=== PATIENT | female | born 1945 | race Caucasian/White ===

== ENCOUNTER → 2018-07-10 13:58 | Outpatient (CLI) | payer MEDICARE, OTHER, SELFPAY ==
--- NOTE | 2018-07-10 | DI.MRI.S_ITS ---
PROCEDURE: MR WRIST LT W CON INDICATIONS: Left wrist pain and decreased range of motion TECHNIQUE: After the administration of 3-4 mL of dilute intra-articular Gadolinium contrast into the radiocarpal compartment, coronal T1 spin echo with fat saturation and T2 fast spin echo with fat saturation, axial T1 spin echo and T2 fast spin echo with fat saturation, sagittal T1 spin echo with and without fat saturation through the wrist. COMPARISON: [facility], , [place] WRIST INJECTION MR/CT LT, 07/10/2018, 14:21. [facility] [place], CR, XR WRIST 3+ VIEWS LEFT, 06/29/2018, 13:38. FINDINGS: Image quality: Diagnostic. Bones and joints: No acute fracture, dislocation, or suspicious osseous lesion is identified involving the osseous structures of the left wrist. Postsurgical changes are present related to resection of the trapezium. Postoperative changes through the base of the 1st metacarpal are present. An orthopedic screw is evident at this location, likely related to tendon or ligament reconstruction/reattachment. Moderate degenerative changes are noted involving the 2nd and 4th carpometacarpal joints. There is mild widening of the scapholunate joint. Adequate distention of the radiocarpal joint with the injected contrast is evident. Contrast is seen extending into the midcarpal row and the distal radioulnar joint. No definite loose intra-articular joint bodies are appreciated. Carpal ligaments: There is a small perforating tear identified involving the scapholunate ligament. The lunotriquetral ligament appears intact. The volar and dorsal extrinsic ligaments of the wrist appear to be grossly intact, but are not well evaluated. Triangular fibrocartilage complex: There is a small perforating tear identified involving the central margin of the triangular fibrocartilage disc with the tear measuring approximately 2 mm in diameter. The meniscal homologue appears to be within normal limits. The extensor carpi ulnaris tendon is intact, but demonstrates slight increased signal near the level of the ulnar styloid process. Tendons and soft tissues: The flexor tendons through the region of the carpal tunnel are intact and within normal limits. However, convex bulge of the carpal tunnel is identified with slight prominence of the median nerve through the region of the carpal tunnel. The ulnar nerve is not well seen streaky on canal, but appears to be within normal limits. There is increased signal and thickening involving the contents of the 1st extensor compartment. Postoperative changes of these tendons probably is present. Otherwise, the remainder of the extensor tendons (other than the extensor carpi ulnaris tendon as described above) are unremarkable and within normal limits. IMPRESSION: 1. Postoperative changes at the base of the thumb as described. 2. Moderate tendinopathy involving the contents of the 1st extensor compartment may represent de Quervain's tenosynovitis or be postoperative in nature. No full-thickness tear. 3. Small perforation of the scapholunate ligament. 4. Small central tear involving the triangular fibrocartilage disc. 5. Mild extensor carpi ulnaris tendinopathy. 6. Moderate degenerative changes involving the 2nd and 4th carpometacarpal joints. 6. Prominence of the contents of the carpal tunnel. Please correlate clinically to exclude carpal tunnel syndrome. Dictated by: John Romero M.D. on 07/10/2018 at 16:33 Approved by: John Romero M.D. on 07/10/2018 at 16:42
--- NOTE | 2018-07-10 | DI.RAD.S_ITS ---
PROCEDURE: [place] WRIST INJECTION MR/CT LT INDICATIONS: osteoarthritis of first carpometacarpal joint TECHNIQUE: After informed consent had been obtained, the wrist was examined fluoroscopically, and a site chosen for injection of the radiocarpal compartment from a dorsal approach. Skin was prepped and draped in a sterile fashion and 1% lidocaine infiltrated from the skin down to the articular surface. A hypodermic needle was then introduced into the articular space and a modest amount of contrast medium was instilled confirming intra-articular needle tip placement. This was followed by approximately 4 mL of a dilute gadolinium solution. Needle was removed and dressing was applied. The patient experienced no complications throughout the procedure and left the fluoroscopic suite in no apparent distress. FINDINGS: A single fluoroscopic spot image demonstrates intra-articular location to injected iodinated contrast. IMPRESSION: Successful fluoroscopic-guided administration of dilute Gadolinium solution for wrist MR arthrogram. Dictated by: Maxx Jaimes M.D. on 07/10/2018 at 14:55 Approved by: Maxx Jaimes M.D. on 07/10/2018 at 14:56
== END ==
PROVIDERS: PCP Family Medicine; Visit Provider Orthopaedic Surgery
DX: M25.532 Pain in left wrist (principal); M19.042 Primary osteoarthritis, left hand; S63.592A Other specified sprain of left wrist, initial encounter
CPT/HCPCS: 20605; 73222; 76000

== ENCOUNTER → 2019-03-22 11:27 | Outpatient (CLI) | payer MEDICARE, OTHER, SELFPAY ==
--- NOTE | 2019-03-22 | DI.MRI.S_ITS ---
PROCEDURE: MR LUMBAR SPINE WO CON INDICATIONS: LUMBAR RADICULOPATHY TECHNIQUE: Noncontrast sagittal T1 spin echo and T2 fast echo, sagittal STIR, axial T1 and T2 fast spin echo through the lumbar spine. In cases with scoliosis, additional coronal T2 fast spin echo may be performed. COMPARISON: None. FINDINGS: Image quality: Excellent. Alignment and Curvature: There is normal bony alignment. Bone Marrow: Marrow is of normal overall signal. No acute vertebral body compression fractures. Spinal Cord: Conus medullaris terminates at the L1 level. Visualized cord demonstrates normal signal and size. Paraspinous Soft Tissues: No paravertebral masses. L1-L2: Loss of the signal. Minimal, diffuse disc bulge. No central stenosis. No neural foraminal narrowing. No neural compression. L2-L3: Loss of the signal and slight loss of disc height. Mild, diffuse disc bulge. No central stenosis. No neural foraminal narrowing. No neural compression. L3-L4: Loss of disc signal and slight loss of disc height. Mild, diffuse disc bulge. Mild bilateral facet hypertrophy. Mild narrowing of the central canal. No neural foraminal narrowing. No neural compression. L4-L5: Loss of disc signal. Mild, diffuse disc bulge and mild bilateral facet hypertrophy. Mild ligamentum flavum hypertrophy. Mild narrowing of the central canal. Mild bilateral neural foraminal narrowing. No neural compression. L5-S1: Loss of disc signal. Mild, diffuse disc bulge. Mild bilateral facet hypertrophy. No central stenosis. No neural foraminal narrowing. No neural compression. IMPRESSION: 1. Multilevel degenerative disc disease. 2. Multilevel facet arthropathy. 3. Mild L3-L4 and L4-L5 central canal narrowing. 4. Mild bilateral L4-L5 neural foraminal narrowing. 5. No neural compression. Dictated by: Tammie Mason MD, PhD on 03/22/2019 at 16:33 Approved by: Tammie Mason MD, PhD on 03/22/2019 at 16:46
== END ==
PROVIDERS: PCP Internal Medicine; Visit Provider Psychiatry & Neurology Neurology
DX: M51.16 Intervertebral disc disorders with radiculopathy, lumbar region (principal); M51.17 Intervertebral disc disorders with radiculopathy, lumbosacral region; M48.061 Spinal stenosis, lumbar region without neurogenic claudication; M47.27 Other spondylosis with radiculopathy, lumbosacral region; M47.26 Other spondylosis with radiculopathy, lumbar region
CPT/HCPCS: 72148

== ENCOUNTER → 2019-08-20 13:58 | Outpatient (CLI) | payer MEDICARE, OTHER, SELFPAY ==
--- NOTE | 2019-08-20 14:02 | DI.RAD.S_ITS ---
PROCEDURE: XR LUMBAR SPINE MIN 4V INDICATIONS: Hip flexor weakness TECHNIQUE: 4 views of the lumbar spine acquired. COMPARISON: [facility], MR, MR LUMBAR SPINE WO CON, 03/22/2019, 11:38. FINDINGS: Bones: On nonrib-bearing vertebrae are present. There is minimal levoconvex curvature within the lumbar spine with apex at L2-3. Multilevel disc space narrowing is present most severe at L5-S1. Minimal mild foraminal narrowing is noted at L4-5 as well as moderate at L1-L2. No vertebral body compression fractures. No suspicious bony lesions. Soft tissues: Overlying bowel gas pattern is normal. No suspicious soft tissue calcifications. Flexion/extension: There is normal range of motion, with preserved normal alignment. IMPRESSION: Stable appearance of degenerative changes as above. Dictated by: Aurelia Polo M.D. on 08/20/2019 at 16:42 Approved by: Aurelia Polo M.D. on 08/20/2019 at 16:45
== END ==
PROVIDERS: PCP Internal Medicine; Referring Provider Physical Medicine & Rehabilitation; Visit Provider Physical Medicine & Rehabilitation
DX: M54.5 Low back pain (principal); M48.07 Spinal stenosis, lumbosacral region; R29.898 Other symptoms and signs involving the musculoskeletal system; M47.816 Spondylosis without myelopathy or radiculopathy, lumbar region; F41.0 Panic disorder [episodic paroxysmal anxiety]; M47.817 Spondylosis without myelopathy or radiculopathy, lumbosacral region; Z98.84 Bariatric surgery status
CPT/HCPCS: 72110; 99214

== ENCOUNTER → 2019-10-30 13:49 | Outpatient (CLI) | payer MEDICARE, OTHER, SELFPAY ==
--- NOTE | 2019-10-30 | DI.MRI.S_ITS ---
PROCEDURE: MR KNEE LT WO CON INDICATIONS: LEFT KNEE PAIN TECHNIQUE: Noncontrast sagittal PD fast spin echo and T2 fast spin echo with fat saturation, sagittal 3-D FLASH with fat saturation; coronal T1 spin echo and PD fast spin echo with fat saturation, and axial PD fast spin echo with fat saturation through the knee. COMPARISON: None. FINDINGS: Image quality: Excellent. Menisci: Medial meniscus intact. Lateral meniscus intact. Cruciate ligaments: Anterior cruciate ligament appears intact. Posterior cruciate ligament appears intact. Medial structures: The medial collateral ligament appears intact. Semimembranosus tendon appears intact. Visualized portions of the pes anserinus tendons appear normal. No abnormal bursal fluid. Lateral structures: The lateral collateral ligament intact. Biceps femoris tendon appears intact. Popliteus tendon grossly unremarkable. Iliotibial band appears intact. Anterior structures: Mild distal quadriceps tendinopathy. Medial and lateral patellofemoral ligaments intact. There is mild patellar tendinopathy. Prepatellar and superficial infrapatellar subcutaneous edema/fluid. Bones and cartilage: No focal marrow contusion or discrete low signal fracture line. Within the medial compartment, mild surface fraying of the femoral tibial cartilage without focal defect. Within the lateral compartment, partial-thickness central cartilage defect involving the femoral condyle. There is intrasubstance signal change of the central tibial cartilage. Within the patellofemoral compartment, there is full-thickness cartilage loss overlying the median patellar ridge and medial patellar facet. There is underlying mild subchondral marrow edema/cystic change. No definite focal cartilage defect involving the femoral trochlea Joint space: No joint effusion. No definite Hess's cyst however there is trace fluid between the semimembranosus and medial gastrocnemius tendons. No specific evidence of intra-articular loose body. IMPRESSION: Distal quadriceps tendinopathy Patellar tendinopathy with adjacent fluid/edema Joint degeneration as above, most pronounced in the patellofemoral compartment. Dictated by: Rafael Echavarria M.D. on 10/30/2019 at 16:31 Approved by: Rafael Echavarria M.D. on 10/30/2019 at 16:37
== END ==
PROVIDERS: PCP Internal Medicine; Referring Provider Internal Medicine; Visit Provider Internal Medicine
DX: M25.562 Pain in left knee (principal); M67.962 Unspecified disorder of synovium and tendon, left lower leg
CPT/HCPCS: 73721

== ENCOUNTER → 2022-08-26 14:47 | Outpatient (CLI) | payer MEDICARE, OTHER, SELFPAY ==
--- NOTE | 2022-08-26 14:49 | DI.RAD.S_ITS ---
PROCEDURE: XR LUMBAR SPINE MIN 4V INDICATIONS: LBP scoliosis TECHNIQUE: 5 views of the lumbar spine were acquired, including bilateral oblique views. COMPARISON: [facility], , XR LUMBAR SPINE MIN 4V, 08/20/2019, 14:25. FINDINGS: Bones: 5 nonrib-bearing vertebrae are present. Convex left scoliosis, centered at L2, Salvador angle of 13 degrees. Grade 1 anterolisthesis of L5 on S1 secondary to facet arthrosis. Moderate disc height loss at all levels. Diffuse facet arthrosis. Soft tissues: Overlying bowel gas pattern is normal. No suspicious soft tissue calcifications. Oblique images: No pars defects. IMPRESSION: Convex left scoliosis of the lumbar spine. Associated diffuse facet arthrosis. Moderate, multilevel degenerative disc disease. Dictated by: Talib Spencer M.D. on 08/26/2022 at 16:25 Approved by: Talib Spencer M.D. on 08/26/2022 at 16:26
--- NOTE | 2022-08-26 14:49 | DI.RAD.S_ITS ---
PROCEDURE: XR THORACIC SPINE 3V INDICATIONS: LBP scoliosis TECHNIQUE: 3 views of the thoracic spine were acquired. COMPARISON: None. FINDINGS: Bones: No fractures or dislocations. No suspicious bony lesions. 12 pairs of ribs are noted, and appear intact where visualized. Convex left scoliosis, centered at L2. Soft tissues: No paravertebral stripe thickening. IMPRESSION: No acute, displaced fracture or traumatic subluxation. No significant degenerative change. Dictated by: Talib pSencer M.D. on 08/26/2022 at 16:24 Approved by: Talib Spencer M.D. on 08/26/2022 at 16:25
== END ==
PROVIDERS: PCP Family Medicine; Referring Provider Physical Medicine & Rehabilitation; Visit Provider Physical Medicine & Rehabilitation
DX: M47.816 Spondylosis without myelopathy or radiculopathy, lumbar region (principal); M41.26 Other idiopathic scoliosis, lumbar region; M51.26 Other intervertebral disc displacement, lumbar region
CPT/HCPCS: 72072; 72110

== ENCOUNTER 2022-11-25 10:17 | Outpatient (CLI) | payer MEDICARE, OTHER, SELFPAY ==
[2022-11-25] VITALS (8 sets, daily range): BP systolic 113–143; BP diastolic 59–89; PULSE 77–92; RESP 16–20; TEMP 36.6; O2SAT 97–100
--- NOTE | 2022-11-25 10:19 | DI.RAD.S_ITS ---
PROCEDURE: PAIN L/SI FACET INJ/BLK 1STL INDICATIONS: SPONDYLOSIS COMPARISON: None. FINDINGS: Fluoroscopic spot filming was performed to verify placement of spinal needles at the left L4, L5 and S1 pedicles level(s), as labeled on the films. Appropriate location(s) of the needle tip(s) was confirmed by injection of iodinated contrast. IMPRESSION: Access needles at the left L4, L5 and S1 pedicles for left L4, L5 and S1 medial branch block. Dictated by: Tammie Mason MD, PhD on 11/25/2022 at 13:02 Approved by: Tammie Mason MD, PhD on 11/25/2022 at 13:03
[2022-11-25] MEDS: MIDAZOLAM 2 MG/2 ML VIAL IV (11:08)
[2022-11-25] MEDS: IOPAMIDOL 15 ML VIAL 3 ML INJ (11:15)
[2022-11-25] MEDS: BUPIVACAINE 0.5% (PF) 10 ML VIAL 5 ML INJ (11:16)
[2022-11-25] MEDS: LIDOCAINE 1% 20 ML 5 ML INJ (11:17)
--- NOTE | 2022-11-25 11:21 | PM.PROC.IR.1 ---
Date/Time/Diagnoses Date of procedure: 11/25/22 Time of procedure: 11:21 Pre-procedure diagnosis: 1. FACET ARTHROPATHY Post-procedure diagnosis: same Procedure Notes Procedure: 1. Left L4, L5 and S1 MB BLOCKS LA Indications: Tess is referred by Dr. Narayanan for treatment of Left Axial LBP. Physician: Elian Lewis Total Fluoroscopy time (seconds): 6 Total sedation minutes: 8 Complications: none Procedure in detail & Post-procedure care: DESCRIPTION OF PROCEDURE Fluoroscopically guided, contrast-controlled left L4, L5 and S1 medial branch blocks with 0.5cc of 0.5% Marcaine. Following review of allergy and review of potential side effects and complications, including, but not necessarily limited to, infection, allergic reaction, local tissue breakdown, nerve injury, paralysis, stroke and possible , the patient indicated that the patient understood and agreed to proceed. An informed consent document was signed by the patient, witnessed by a nurse, and placed in the patient's chart. After review of previous anaesthesic history and IV conscious sedation the patient was deemed safe to proceed with today?s procedure with IV conscious sedation as ASA class II designation. Safety time-out was performed to confirm patient ID, procedure to be performed and site of procedure. IV sedation was accomplished with a combination of 2mg of Versed was administered by the RN after DO order, titrated to patient comfort during the course of the procedure while the patient remained responsive to all verbal commands. In the prone position, following sterile prep and drape of the lumbar region, the left L4, L5 and S1 anatomical location of the medial branch of the dorsal ramus was identified fluoroscopically. Subsequently an anesthetic skin wheal using 1% lidocaine solution was initiated at each of the anatomical spots. Subsequently then a 22-gauge 3.5-inch spinal needle was atraumatically introduced and advanced under fluoroscopic guidance at each of the corresponding sites at the left L4, L5 and S1 MB. After negative aspiration, 0.2cc of Isovue 200 was injected, confirming placement without vascular or intrathecal uptake. Subsequently then 0.5cc of 0.5% Marcaine solution was injected at each of the corresponding sites at the left L4, L5 and S1 medial branch locations. The patient tolerated the procedure well without signs or symptoms of complications. The patient tolerated the procedure well without signs or symptoms of complications prior to transfer to the recovery area continued monitoring without incident. Post-procedure, the patient was monitored initiating provocative activities to measure the amount of relief from block of the facetogenic pain. The patient reported a VAS of 6 prior to the procedure and a post-procedure VAS of 1. It has been a pleasure to assist in the diagnostic and therapeutic care of your patient. POST OP INSTRUCTIONS The patient was provided with a Pain Log to complete over the next several hours and subsequent days prior to the patient's follow up with the ordering physician. If the patient has statement clerks supervisor relief to the solution applied, then they may be a candidate for medial branch rhizotomy. The patient is aware, was provided, once again, with a Pain Log and will follow up with the referring physician for review and clinical correlation.
== END 2022-11-25 11:38 | disposition home or self-care (01) ==
LOC: RAD 10:18
PROVIDERS: PCP Family Medicine; Referring Provider Physical Medicine & Rehabilitation; Visit Provider Physical Medicine & Rehabilitation
DX: M47.816 Spondylosis without myelopathy or radiculopathy, lumbar region (principal); M47.817 Spondylosis without myelopathy or radiculopathy, lumbosacral region
CPT/HCPCS: 64493; 64494; 99152; J2250

== ENCOUNTER 2023-03-03 09:28 | Outpatient (CLI) | payer MEDICARE, OTHER, SELFPAY ==
[2023-03-03] VITALS (8 sets, daily range): BP systolic 107–124; BP diastolic 59–76; PULSE 82–95; RESP 13–20; O2SAT 96–100
--- NOTE | 2023-03-03 10:15 | DI.RAD.S_ITS ---
PROCEDURE: PAIN L/SI FACET INJ/BLK 1STL INDICATIONS: FACET ARTHROPATHY COMPARISON: [facility], , PAIN L/SI FACET INJ/BLK 1STL, 11/25/2022, 11:11. FINDINGS: Fluoroscopic spot filming was performed to verify placement of spinal needles at the left L4, L5, and S1 level(s), as labeled on the films. Appropriate location(s) of the needle tip(s) was confirmed by injection of iodinated contrast. IMPRESSION: Left L4, L5, and S1 medial branch block. Dictated by: Becka Osuna M.D. on 03/03/2023 at 17:10 Approved by: Becka Osuna M.D. on 03/03/2023 at 17:11
[2023-03-03] MEDS: MIDAZOLAM 2 MG/2 ML VIAL IV (10:50)
[2023-03-03] MEDS: iopamidoL 15 ML VIAL 3 ML INJ (10:53)
[2023-03-03] MEDS: LIDOCAINE 2% INJ SDV 5ML 5 ML INJ (10:54)
--- NOTE | 2023-03-03 11:05 | P.PCN_ITS ---
Date/Time/Diagnoses Date of procedure: 03/03/23 Time of procedure: 11:05 Pre-procedure diagnosis: FACET ARTHROPATHY Post-procedure diagnosis: same Procedure Notes Procedure: 1. Left L4, L5 and S1 MB BLOCKS SA Indications: Tess is referred by Dr. Narayanan for treatment of Left Axial LBP. Physician: Elian Lewis Total Fluoroscopy time (seconds): 8 Total sedation minutes: 10 Complications: none Procedure in detail & Post-procedure care: DESCRIPTION OF PROCEDURE Fluoroscopically guided, contrast-controlled left L4, L5 and S1 medial branch blocks with 0.5cc of 2% Lidocaine. Following review of allergy and review of potential side effects and complications, including, but not necessarily limited to, infection, allergic reaction, local tissue breakdown, nerve injury, paralysis, stroke and possible , the patient indicated that the patient understood and agreed to proceed. An informed consent document was signed by the patient, witnessed by a nurse, and placed in the patient's chart. After review of previous anaesthesic history and IV conscious sedation the patient was deemed safe to proceed with today?s procedure with IV conscious sedation as ASA class II designation. Safety time-out was performed to confirm patient ID, procedure to be performed and site of procedure. IV sedation was accomplished with a combination of 2mg of Versed was administered by the RN after DO order, titrated to patient comfort during the course of the procedure while the patient remained responsive to all verbal commands. In the prone position, following sterile prep and drape of the lumbar region, the left L4, L5 and S1 anatomical location of the medial branch of the dorsal ramus was identified fluoroscopically. Subsequently an anesthetic skin wheal using 1% lidocaine solution was initiated at each of the anatomical spots. Subsequently then a 22-gauge 3.5-inch spinal needle was atraumatically introduced and advanced under fluoroscopic guidance at each of the corresponding sites at the left L4, L5 and S1 MB. After negative aspiration, 0.2cc of Isovue 200 was injected, confirming placement without vascular or intrathecal uptake. Subsequently then 0.5cc of 2% Lidocaine solution was injected at each of the corresponding sites at the left L4, L5 and S1 medial branch locations. The patient tolerated the procedure well without signs or symptoms of complications. The patient tolerated the procedure well without signs or symptoms of complications prior to transfer to the recovery area continued monitoring without incident. Post-procedure, the patient was monitored initiating provocative activities to measure the amount of relief from block of the facetogenic pain. The patient reported a VAS of 7 prior to the procedure and a post-procedure VAS of 1. It has been a pleasure to assist in the diagnostic and therapeutic care of your patient. POST OP INSTRUCTIONS The patient was provided with a Pain Log to complete over the next several hours and subsequent days prior to the patient's follow up with the ordering physician. If the patient has telemarketing sales representative relief to the solution applied, then they may be a candidate for medial branch rhizotomy. The patient is aware, was provided, once again, with a Pain Log and will follow up with the referring physician for review and clinical correlation.
== END 2023-03-03 11:20 | disposition home or self-care (01) ==
LOC: RAD 09:30
PROVIDERS: PCP Family Medicine; Referring Provider Physical Medicine & Rehabilitation; Visit Provider Physical Medicine & Rehabilitation
DX: M47.816 Spondylosis without myelopathy or radiculopathy, lumbar region (principal); M47.817 Spondylosis without myelopathy or radiculopathy, lumbosacral region
CPT/HCPCS: 64493; 64494; 99152; J2250

== ENCOUNTER 2023-05-17 10:31 | Outpatient (CLI) | payer MEDICARE, OTHER, SELFPAY ==
[2023-05-17] VITALS (9 sets, daily range): BP systolic 110–124; BP diastolic 63–80; PULSE 71–86; RESP 13–20; TEMP 36.3; O2SAT 92–100
--- NOTE | 2023-05-17 11:15 | DI.RAD.S_ITS ---
PROCEDURE: PAIN L/S MED/LAT N RFA INDICATIONS: FACET ARTHOPATHY COMPARISON: None. FINDINGS: Fluoroscopic spot filming was performed to verify placement of spinal needles at the L4-S1 level(s), as labeled on the films. Appropriate location(s) of the needle tip(s) was confirmed by injection of iodinated contrast. IMPRESSION: Fluoroscopically guided left lumbosacral facet injection. Dictated by: Lubna Qiu M.D. on 05/17/2023 at 16:32 Approved by: Lubna Qiu M.D. on 05/17/2023 at 16:33
[2023-05-17] MEDS: MIDAZOLAM 2 MG/2 ML VIAL IV (12:09)
[2023-05-17] MEDS: BUPIVACAINE 0.5% (PF) 10 ML VIAL 5 ML INJ (12:13)
[2023-05-17] MEDS: LIDOCAINE 1% 20 ML 5 ML INJ (12:13)
--- NOTE | 2023-05-17 12:34 | P.PCN_ITS ---
Date/Time/Diagnoses Date of procedure: 05/17/23 Time of procedure: 12:34 Pre-procedure diagnosis: 1. FACET ARTHROPATHY Post-procedure diagnosis: same Procedure Notes Procedure: 1. Left L4, L5 and S1 MB BLOCKS LA Indications: Tess is referred by Dr. Narayanan for treatment of Left Axial LBP. Physician: Elian Lewis Total Fluoroscopy time (seconds): 12 Total sedation minutes: 21 Complications: none Procedure in detail & Post-procedure care: DESCRIPTION OF PROCEDURE Fluoroscopically guided, contrast-controlled left L4, L5 and S1 medial branch blocks with 0.5cc of 0.5% Marcaine. Following review of allergy and review of potential side effects and complications, including, but not necessarily limited to, infection, allergic reaction, local tissue breakdown, nerve injury, paralysis, stroke and possible , the patient indicated that the patient understood and agreed to proceed. An informed consent document was signed by the patient, witnessed by a nurse, and placed in the patient's chart. After review of previous anaesthesic history and IV conscious sedation the patient was deemed safe to proceed with today?s procedure with IV conscious sedation as ASA class II designation. Safety time-out was performed to confirm patient ID, procedure to be performed and site of procedure. IV sedation was accomplished with a combination of 2mg of Versed was administered by the RN after DO order, titrated to patient comfort during the course of the procedure while the patient remained responsive to all verbal commands. In the prone position, following sterile prep and drape of the lumbar region, the left L4, L5 and S1 anatomical location of the medial branch of the dorsal ramus was identified fluoroscopically. Subsequently an anesthetic skin wheal using 1% lidocaine solution was initiated at each of the anatomical spots. Subsequently then a 22-gauge 3.5-inch spinal needle was atraumatically introduced and advanced under fluoroscopic guidance at each of the corresponding sites at the left L4, L5 and S1 MB. After negative aspiration, 0.2cc of Isovue 200 was injected, confirming placement without vascular or intrathecal uptake. Subsequently then 0.5cc of 0.5% Marcaine solution was injected at each of the corresponding sites at the left L4, L5 and S1 medial branch locations. The patient tolerated the procedure well without signs or symptoms of complications. The patient tolerated the procedure well without signs or symptoms of complications prior to transfer to the recovery area continued monitoring without incident. Post-procedure, the patient was monitored initiating provocative activities to measure the amount of relief from block of the facetogenic pain. The patient reported a VAS of 7 prior to the procedure and a post-procedure VAS of 1. It has been a pleasure to assist in the diagnostic and therapeutic care of your patient. POST OP INSTRUCTIONS The patient was provided with a Pain Log to complete over the next several hours and subsequent days prior to the patient's follow up with the ordering physician. If the patient has water chaser relief to the solution applied, then they may be a candidate for medial branch rhizotomy. The patient is aware, was provided, once again, with a Pain Log and will follow up with the referring physician for review and clinical correlation.
== END 2023-05-17 12:56 | disposition home or self-care (01) ==
PROVIDERS: PCP Family Medicine; Referring Provider Physical Medicine & Rehabilitation; Visit Provider Physical Medicine & Rehabilitation
DX: M47.816 Spondylosis without myelopathy or radiculopathy, lumbar region (principal); M47.817 Spondylosis without myelopathy or radiculopathy, lumbosacral region
CPT/HCPCS: 64635; 64636; 99152; J2250

== ENCOUNTER 2023-06-29 12:49 | Emergency (ER) | payer MEDICARE, OTHER, SELFPAY ==
[2023-06-29] VITALS (10 sets, daily range): BP systolic 95–115; BP diastolic 60–66; PULSE 66–104; RESP 18–30; TEMP 36.9; O2SAT 96–99; BMI 23.3
--- NOTE | 2023-06-29 13:06 | DI.RAD.S_ITS ---
PROCEDURE: XR CHEST 1V INDICATIONS: chest pain TECHNIQUE: One view of the chest was acquired. COMPARISON: None. FINDINGS: Surgical changes and devices: None. Lungs and pleura: Lungs are clear. No pleural effusions or pneumothorax. Mediastinum: Mediastinal contours appear normal. Heart size is normal. Bones and chest wall: No suspicious bony lesions. Overlying soft tissues appear unremarkable. IMPRESSION: No acute cardiopulmonary abnormality is seen. Approved by: Beverly Saleh M.D.,Ph.D. on 06/29/2023 at 15:12
--- NOTE | 2023-06-29 13:33 | ED_ITS ---
HPI - Nausea/Vomiting/Diarrhea General Chief complaint: Nausea/Vomiting/Diarrhea Stated complaint: diarrhea T-6 Time Seen by Provider: 06/29/23 13:07 Source: patient Mode of arrival: Ambulatory History of Present Illness HPI Narrative: Patient is a 77-year-old female who is here for evaluation of 6 days of diarrhea. No blood in her stool. No abdominal tenderness but she states she does feel like her abdomen is somewhat distended. No nausea vomiting. No fevers. She did recently return from [place]. No recent antibiotics. She has had a gastric bypass in the past. She stated in triage that she is being evaluated for potential abnormal heart rhythm by her primary doctor. She currently is not having chest pain or shortness of breath. Does occasionally have palpitations. Related Data Home Medications Medication Instructions Recorded Confirmed rabeprazole 20 mg tablet,delayed 20 mg PO 10/04/22 04/11/23 release lorazepam 2 mg/mL oral concentrate 0.25 mg PO BID PRN 01/12/23 04/11/23 (Lorazepam Intensol) Previous Rx's Medication Instructions Recorded hydrocodone 5 mg-acetaminophen 300 1 tab PO BEDTIME PRN pain #14 tabs 01/12/23 mg tablet acetaminophen 300 mg-codeine 30 mg 1 tab PO BID PRN pain #60 tabs 04/11/23 tablet diazepam 10 mg tablet (Valium) 10 mg PO .COMPLEX PRN 1-2 prior to 04/11/23 MRI and for possible steroid flare #10 tabs hydroxyzine pamoate 25 mg capsule 25 mg PO BID PRN pain (scale score 05/16/23 (Vistaril) 4-6) #30 caps ondansetron 4 mg disintegrating 4 mg PO Q8H PRN nausea and 06/29/23 tablet vomiting #10 tabs Allergies Allergy/AdvReac Type Severity Reaction Status Date / Time tramadol AdvReac Severe itching Verified 04/11/23 14:46 milk AdvReac Intermediate stomach Verified 04/11/23 14:46 cramps Review of Systems Review of Systems ROS Unobtainable: All systems reviewed & are unremarkable except as noted in HPI and below Patient History Medical History Scoliosis Panic attacks Spondylosis, lumbosacral Facet arthropathy, lumbar History of hiatal hernia Surgical History History of gastric bypass H/O gastric bypass H/O wrist surgery Family History Father Lung disease Mother A-fib Heart disease Brother Kidney stone Grandmother Stomach cancer Grandfather Heart disease Social History Smoking Status: Never smoker Smoking Status: Never smoker Substance Use Type: does not use Exam Initial Vital Signs Initial Vital Signs: Vital Signs Temperature 98.4 F 06/29/23 12:55 Pulse Rate 93 H 06/29/23 12:55 Respiratory Rate 18 06/29/23 12:55 Blood Pressure 115/66 06/29/23 12:55 Pulse Oximetry 97 06/29/23 12:55 Oxygen Delivery Method Room Air 06/29/23 12:55 Const General: cooperative, comfortable and No ill appearing HENMT Head: normal to inspection and atraumatic Resp Effort & Inspection: normal respiratory effort Auscultation: clear to auscultation bilaterally Cardio Rate: regular rate Rhythm: regular rhythm GI Inspection: normal to inspection and distended (Mild distention) Palpation: soft, No firm, No guarding and No tender Neuro General: patient alert, patient awake and moves all extremities Extrem General: normal to inspection and capillary refill normal Course Orders Ordered: ED Orders 06/29/23 13:06 XR chest 1V Stat 06/29/23 13:30 Complete Blood Count AUTO DIFF Stat 06/29/23 13:32 XR abdomen 1V Stat GI Panel (Film Array) Stat 06/29/23 14:10 Comprehensive Metabolic Panel Stat Lipase Stat Vital Signs Vital signs: Vital Signs - 8 hr 06/29/23 12:55 06/29/23 13:22 06/29/23 13:30 Temperature 98.4 F Pulse Rate 93 H 87 104 H Respiratory Rate 18 21 Blood Pressure 115/66 Pulse Oximetry 97 97 97 Oxygen Delivery Method Room Air 06/29/23 14:00 06/29/23 14:30 06/29/23 15:01 Temperature Pulse Rate 79 73 68 Respiratory Rate 23 24 Blood Pressure Pulse Oximetry 97 97 96 Oxygen Delivery Method Room Air MDM - Nausea/Vomiting/Diarrhea Lab Data Attestation: I reviewed the patient's lab results. 06/29/23 13:30 04/17/24 14:10 Labs: Lab Results 06/29/23 06/29/23 Range/Units 13:30 14:10 WBC 8.9 (4.5-11.0) X10^3/uL RBC 4.24 (4.0-5.2) X10^6/uL Hgb 12.5 (12.0-16.0) g/dL Hct 37.5 (36-46) % MCV 88.5 (80-100) fL MCH 29.4 (26-34) PG MCHC 33.2 (30-36) % RDW 13.8 (11.6-14.8) % Plt Count 338 (150-400) X10^3/uL Neut % (Auto) 58.5 (50-75) % Lymph % (Auto) 23.2 L (25-40) % [place] % (Auto) 14.2 H (3-14) % Eos % (Auto) 3.6 (2-4) % Baso % (Auto) 0.5 (0-2) % Neut # (Auto) 5200 (3680-6253) /uL Lymph # (Auto) 2100 (4456-6014) /uL [place] # (Auto) 1300 H (0-900) /uL Eos # (Auto) 300 (0-450) /uL Baso # (Auto) 0 (0-100) /uL Sodium 137 (137-145) mmol/L Potassium 3.5 (3.4-5.1) mmol/L Chloride 110 H (98-107) mmol/L Carbon Dioxide 21 L (22-32) mmol/L BUN 13 (7-17) mg/dL Creatinine 0.77 (0.52-1.04) mg/dL Estimated GFR > 60 (>60) mL/min BUN/Creatinine Ratio 16.9 (6-22) Glucose 95 (80-110) mg/dL Calcium 9.1 (8.4-10.2) mg/dL Magnesium Cancelled Total Bilirubin 0.4 (0.2-1.3) mg/dL AST 19 (14-36) IU/L ALT 10 (<35) IU/L Alkaline Phosphatase 80 (38-126) U/L Total Creatine Kinase Cancelled Troponin I Cancelled Total Protein 6.3 (6.3-8.2) g/dL Albumin 3.5 (3.5-5.0) g/dL Globulin 2.8 (1.7-4.1) g/dL Albumin/Globulin Ratio 1.3 (1.0-2.8) Lipase 42 (23-300) U/L Imaging Data Chest x-ray: Radiologist's Impression: PROCEDURE: XR CHEST 1V INDICATIONS: chest pain TECHNIQUE: One view of the chest was acquired. COMPARISON: None. FINDINGS: Surgical changes and devices: None. Lungs and pleura: Lungs are clear. No pleural effusions or pneumothorax. Mediastinum: Mediastinal contours appear normal. Heart size is normal. Bones and chest wall: No suspicious bony lesions. Overlying soft tissues appear unremarkable. IMPRESSION: No acute cardiopulmonary abnormality is seen. Abdominal x-ray: Radiologist's Impression: PROCEDURE: XR ABDOMEN 1V INDICATIONS: Abdominal distention TECHNIQUE: One view of the abdomen acquired. COMPARISON: None. FINDINGS: Surgical changes and devices: Surgical clips overlie the right upper quadrant. Surgical sutures overlie the left upper quadrant. Bowel: Bowel gas pattern is normal. Soft tissues: No suspicious abdominal calcifications. Visualized solid organ contours appear normal in size. Bones: No suspicious bony lesions. IMPRESSION: Nonobstructive bowel gas pattern. MDM Narrative Medical decision making narrative: Patient does have a benign soft abdominal exam. X-ray shows no signs of obstruction. She has no abdominal tenderness. Not vomiting. Labs are unremarkable. She is tolerating oral intake. Is unable to provide us a stool sample here in the ER. Had a discussion with her regarding this. We will hold on any antibiotics for now. Recommend taking Imodium to try to help slow down the diarrhea. Also sent home with a prescription for nausea medicine. Discussed the importance of increasing her fluid intake. Discussed return precautions and follow-up instructions. She expressed understanding and agreement. Discharge Plan Departure Patient Disposition: Home Clinical Impression: Diarrhea Instructions: Diarrhea Activity Restrictions/Additional Instructions: Recommend that you consider taking Imodium/loperamide to try to help slow down the diarrhea. Be sure that you were increasing your fluid intake. Contact your primary doctor for a follow-up. Return to the emergency department for new or worsening symptoms. Prescriptions: New ondansetron 4 mg tablet,disintegrating 4 mg PO Q8H PRN (Reason: nausea and vomiting) Qty: 10 0RF No Action hydroxyzine pamoate [Vistaril] 25 mg capsule 25 mg PO BID PRN (Reason: pain (scale score 4-6)) Qty: 30 1RF rabeprazole 20 mg tablet,delayed release (DR/EC) 20 mg PO lorazepam [Lorazepam Intensol] 2 mg/mL concentrate 0.25 mg PO BID PRN hydrocodone-acetaminophen 5-300 mg tablet 1 tab PO BEDTIME PRN (Reason: pain) Qty: 14 0RF diazepam [Valium] 10 mg tablet 10 mg PO .COMPLEX MDD 3 tabs PRN (Reason: 1-2 prior to MRI and for possible steroid flare) Qty: 10 0RF Rx Instructions: 10 mg PO PRN; acetaminophen-codeine 300-30 mg tablet 1 tab PO BID PRN (Reason: pain) Qty: 60 1RF Referrals: Hussain Narayanan DO [Primary Care Provider] - Stand Alone Forms: Patient Portal/API
[2023-06-29 13:48] LABS: Add Manual Diff / Slide Review NO; Basophils Absolute Auto 0 /uL (0-100); Basophils Percent Auto 0.5 % (0-2); Eosinophils Absolute Auto 300 /uL (0-450); Eosinophils Percent Auto 3.6 % (2-4); Hematocrit 37.5 % (36-46); Hemoglobin 12.5 g/dL (12.0-16.0); Lymphocytes Absolute Auto 2100 /uL (1100-4500); Lymphocytes Percent Auto 23.2 % (25-40); Mean Corpuscular HGB Conc 33.2 % (30-36); Mean Corpuscular Hemoglobin 29.4 PG (26-34); Mean Corpuscular Volume 88.5 fL (80-100); Monocytes Absolute Auto 1300 /uL (0-900); Monocytes Percent Auto 14.2 % (3-14); Neutrophils Absolute Auto 5200 /uL (1500-7000); Neutrophils Percent Auto 58.5 % (50-75); Platelet Count 338 X10^3/uL (150-400); Red Blood Cell Count 4.24 X10^6/uL (4.0-5.2); Red Cell Distribution Width 13.8 % (11.6-14.8); White Blood Cell Count 8.9 X10^3/uL (4.5-11.0)
[2023-06-29 14:28] LABS: Alanine Aminotransferase 10 IU/L (<35); Albumin 3.5 g/dL (3.5-5.0); Albumin Globulin Ratio 1.3 (1.0-2.8); Alkaline Phosphatase 80 U/L (38-126); Aspartate Aminotransferase 19 IU/L (14-36); BUN Creatinine Ratio 16.9 (6-22); Bilirubin Total 0.4 mg/dL (0.2-1.3); Blood Urea Nitrogen 13 mg/dL (7-17); Calcium 9.1 mg/dL (8.4-10.2); Carbon Dioxide 21 mmol/L (22-32); Chloride 110 mmol/L (98-107); Estimated Glomerular Filt Rate > 60 mL/min (>60); Globulin 2.8 g/dL (1.7-4.1); Glucose 95 mg/dL (80-110); HEMOLYSIS 15 (0-50); Lipase 42 U/L (23-300); Potassium 3.5 mmol/L (3.4-5.1); Sodium 137 mmol/L (137-145); Total Protein 6.3 g/dL (6.3-8.2)
== END 2023-06-29 16:14 | disposition home or self-care (01) ==
PROVIDERS: Emergency Provider Emergency Medicine; PCP Family Medicine
DX: R19.7 Diarrhea, unspecified (principal); R07.9 Chest pain, unspecified; R14.0 Abdominal distension (gaseous)
CPT/HCPCS: 36415; 71045; 74018; 80053; 83690; 85025; 99284

== ENCOUNTER → 2023-07-18 15:02 | Outpatient (CLI) | payer MEDICARE, OTHER, SELFPAY ==
--- NOTE | 2023-07-18 15:03 | DI.US.S_ITS ---
PROCEDURE: US ABDOMEN COMPLETE INDICATIONS: EPIGASTRIC ABDOMINAL PAIN TECHNIQUE: Real-time scanning was performed of the abdominal and retroperitoneal organs, with image documentation. COMPARISON: None. FINDINGS: Liver: Increased liver echogenicity with posterior attenuation, most consistent with moderate to severe steatosis. Gallbladder: Absent. Biliary ducts: No intrahepatic biliary dilation. Extrahepatic biliary tree not visualized due to overlying bowel gas. Pancreas: Not visualized due to overlying bowel gas. Spleen: Spleen is normal in size and homogeneous in echotexture. Kidneys: Kidneys are normal in size and echotexture. Right kidney measures 9.7 cm long; left kidney measures 8.6 cm long. No hydronephrosis or nephrolithiasis. No solid masses. Aorta: Visualized aorta is normal in caliber at less than 3 cm. Iliacs: Proximal common iliac arteries are normal in caliber at less than 2.5 cm. IVC: Not well seen due to overlying bowel gas. Miscellaneous: No free abdominal fluid. IMPRESSION: Increased liver echogenicity with posterior attenuation, most consistent with moderate to severe steatosis. No acute abnormality otherwise. Dictated by: Talib Spencer M.D. on 07/18/2023 at 16:43 Approved by: Talib Spencer M.D. on 07/18/2023 at 16:44
== END ==
PROVIDERS: PCP Family Medicine; Referring Provider Internal Medicine Gastroenterology; Visit Provider Internal Medicine Gastroenterology
DX: R10.13 Epigastric pain (principal)
CPT/HCPCS: 76700

== ENCOUNTER 2023-08-04 08:52 | Outpatient (CLI) | payer MEDICARE, OTHER, SELFPAY ==
[2023-08-04] VITALS (8 sets, daily range): BP systolic 100–118; BP diastolic 60–71; PULSE 65–86; RESP 14–18; TEMP 36.4; O2SAT 96–100
--- NOTE | 2023-08-04 09:45 | DI.RAD.S_ITS ---
PROCEDURE: PAIN SI JOINT INJECTION HARRIETT INDICATIONS: BILATERAL SI JOINT INJECTION COMPARISON: None. FINDINGS: Fluoroscopic spot filming was performed to verify placement of spinal needles at the sacroiliac joints level(s), as labeled on the films. Appropriate location(s) of the needle tip(s) was confirmed by injection of iodinated contrast. IMPRESSION: Sacroiliac joint injection for procedural guidance. Dictated by: Rd Scherer M.D. on 08/04/2023 at 13:43 Approved by: Rd Scherer M.D. on 08/04/2023 at 13:44
[2023-08-04] MEDS: MIDAZOLAM 2 MG/2 ML VIAL 1.25 MG IV (10:09)
[2023-08-04] MEDS: fentaNYL 100 MCG/2 ML INJ 25 MCG IV (10:10)
[2023-08-04] MEDS: iopamidoL 15 ML VIAL 3 ML INJ (10:13)
[2023-08-04] MEDS: BUPIVACAINE 0.5% (PF) 10 ML VIAL 5 ML INJ (10:13)
[2023-08-04] MEDS: BETAMETHASONE 30 MG/5 ML MDV 12 MG INJ (10:14)
--- NOTE | 2023-08-04 10:26 | PM.PROC.IR.1 ---
Date/Time/Diagnoses Date of procedure: 08/04/23 Time of procedure: 10:26 Pre-procedure diagnosis: Sacroiliac joint pain/DJD Post-procedure diagnosis: same Procedure Notes Procedure: Fluoroscopic guided contrast controlled bilateral sacroiliac joint injection Indications: Tess is referred by Dr. Narayanan for treatment of bilateral sacroiliac joint DJD Physician: Elian Lewis Total Fluoroscopy time (seconds): 17 Total sedation minutes: 12 Complications: none Procedure in detail & Post-procedure care: Description of procedure Fluoroscopic guided, contrast controlled bilateral sacroiliac joint injection Following review of allergies and review of potential side effects and complications, including, but not necessarily limited to, infection, allergic reaction, local tissue breakdown, temporary as well as permanent nerve injury, paralysis, stroke and possible , the patient indicated that they understood and agreed to proceed. An informed consent was signed by the patient, witnessed by a nurse, and placed in the patient's chart. Additionally, other treatment options including modalities, medications, and physical therapy were reviewed with the patient. After review of previous anaesthesic history and IV conscious sedation the patient was deemed safe to proceed with today?s procedure with IV conscious sedation as ASA class II designation. Safety time-out was performed to confirm patient ID, procedure to be performed and site of procedure. IV sedation was accomplished with a combination of 1mg Versed and 25mcg of Fentanyl were administered by the RN after DO order, titrated to patient comfort during the course of the procedure while the patient remained responsive to all verbal commands In the prone position following sterile prep and drape of the pelvic region, the hyper lucency on in the inferior aspect of the sacroiliac joint was identified fluoroscopically the skin was anesthetized be a 25 gauge 1.5 inch needle with approximately 2cc of 1% lidocaine solution. At this point, a 22 gauge 3 in spinal needle was atraumatically introduced and advanced under fluoroscopic guidance into the inferior aspect of the right sacroiliac joint. Following negative aspiration, approximately 0.3cc of Isovue-300 was injected confirming intra-articular placement without vascular uptake. Radiographic data, including multiple fluoroscopic views of the pelvis, reveals a spinal needle in the sacroiliac joint hyper lucent zone. Subsequent view show flow contrast tear superiorly and inferiorly within the joint capsule without vascular intrathecal uptake. At this point a total of 1cc of 0.5% Marcaine was combined with 1cc of 6mg of betamethasone was injected without incident. Attention was then refocused the left sacroiliac joint where the procedure was replicated. The procedure tolerated the procedure well without signs or symptoms of complications prior to transfer to the recovery area continued monitoring without incident. The patient was then transferred to the recovery area with a bur observed for an appropriate time after the injection. The patient reverted a vas score of 7 prior to the procedure and post-procedure vas of 1. Postop instructions The patient was provided with a pain like to continue to record the patient's response to the target specific procedure prior to the patient's follow-up visit with the referring physician. Additionally, specific post injection care instructions and a contact number to our office were provided if concerns arise regarding the possible complications associated with procedure are suspected.
== END 2023-08-04 10:45 | disposition home or self-care (01) ==
LOC: RAD 08:52
PROVIDERS: PCP Family Medicine; Referring Provider Physical Medicine & Rehabilitation; Visit Provider Physical Medicine & Rehabilitation
DX: M46.1 Sacroiliitis, not elsewhere classified (principal); M53.3 Sacrococcygeal disorders, not elsewhere classified
CPT/HCPCS: 27096; 77002; 99152; J0702; J2250; J3010

== ENCOUNTER → 2023-08-22 12:12 | Outpatient (CLI) | payer MEDICARE, OTHER, SELFPAY ==
--- NOTE | 2023-08-22 12:14 | DI.RAD.S_ITS ---
PROCEDURE: XR DEXA AXIAL SKELETON INDICATIONS: ASYMPTOMATIC MENOPAUSAL STATE COMPARISON: [facility], , DEXA AXIAL SKELETON, 06/17/2016, 15:37. FINDINGS: Lumbar Spine: Bone mineral density 0.791 g/cm2, T score -2.3. Left Hip: Bone mineral density 0.681 g/cm2, T score -2.1. Left Femoral Neck: Bone mineral density 0.581 g/cm2, T score -2.4. Right Hip: Bone mineral density 0.654 g/cm2, T score -2.4. Right Femoral Neck: Bone mineral density 0.547 g/cm2, T score -2.7. Fracture Risk Calculation (when applicable): 10-year fracture risk of a major osteoporotic fracture 19% and of a hip fracture 6.5%. (T score greater or equal to -1.0 to: NORMAL) (T score from -1.1 to -2.4: OSTEOPENIA) (T score less than or equal to -2.5: OSTEOPOROSIS) IMPRESSION: Osteoporosis. Follow-up guidelines as follows: Osteoporosis: Consider a repeat DEXA and Vertebral Fracture Assessment (VFA) exam in 2 years or sooner if medically necessary, to reassess this patient's status. Osteopenia: Consider a repeat DEXA in 2-3 years to reassess this patient's status, or if there is a new clinical indication. Normal: Consider a repeat DEXA in 5 years or sooner, or if there is a new clinical indication. All treatment decisions require clinical judgment and consideration of individual patient factors, including patient preferences, comorbidities, previous drug use, risk factors not captured in the FRAX model (e.g., frailty, falls, vitamin D deficiency, increased bone turnover, interval significant decline in bone density ) and possible under- or over-estimation of fracture risk by FRAX. In addition, the NOF Guide recommends that FDA-approved medical therapies be considered in postmenopausal women and men age >= 50 years with a: * Hip or vertebral (clinical or morphometric) fracture * T-score of <=-2.5 at the spine or hip * Ten-year fracture probability by FRAX of >= 3% for hip fracture or >=20% for major osteoporotic fracture. People with diagnosed cases of osteoporosis or at high risk for fracture should have regular bone mineral density tests. For patients eligible for Medicare, routine testing is allowed once every 2 years. The testing frequency can be increased to one year for patients who have rapidly progressing disease, those who are receiving or discontinuing medical therapy to restore bone mass, or have additional risk factors. Dictated by: Max Ruiz M.D. on 08/22/2023 at 17:33 Approved by: Max Ruiz M.D. on 08/22/2023 at 17:39
== END ==
LOC: RAD 12:12
PROVIDERS: PCP Family Medicine; Referring Provider Family Medicine; Visit Provider Family Medicine
DX: Z78.0 Asymptomatic menopausal state (principal); Z13.820 Encounter for screening for osteoporosis; M81.0 Age-related osteoporosis without current pathological fracture
CPT/HCPCS: 77080

== ENCOUNTER → 2023-09-07 06:56 | Outpatient (CLI) | payer MEDICARE, OTHER, SELFPAY ==
--- NOTE | 2023-09-07 07:01 | DI.CT.S_ITS ---
PROCEDURE: CT ABDOMEN PELVIS W CON INDICATIONS: PAIN OF UPPER ABDOMEN, EPIGASTRIC PAIN TECHNIQUE: After the administration of intravenous contrast, axial sections acquired from the lung bases to the pubic symphysis. Coronal and sagittal reformats were performed. For radiation dose reduction, the following was used: automated exposure control, adjustment of mA and/or kV according to patient size. COMPARISON: None. FINDINGS: Image quality: Diagnostic. Lower Chest: No significant findings. ABDOMEN: Liver: No solid mass. Subcentimeter hypoattenuating lesion in segment 2, too small to characterize by CT but probably a small cyst. Gallbladder: Absent. Biliary ducts: No biliary dilation. Pneumobilia. Pancreas: No ductal dilation. Fatty atrophy. Spleen: Size is within normal limits. Adrenal Glands: 1.7 centimeter left adrenal nodule with indeterminate attenuation (25 Hounsfield unit). Kidneys and Ureters: No hydronephrosis. No solid mass. No complex renal cystic lesion which requires follow up. 3-4 millimeter nonobstructing right-sided renal stone. Stomach and Bowel: Normal colonic caliber, without significant wall thickening. Gastric bypass. Intussusception of the small bowel anastomosis in the left mid quadrant (series 4, image 17). Colonic diverticulosis without evidence of diverticulitis. Peritoneum: No abnormal intraperitoneal fluid. No free air. Ventral Wall: No significant ventral hernia. Abdominal Nodes: No retroperitoneal or mesenteric adenopathy by size criteria. Vessels: Aorta and inferior vena cava are normal in size. PELVIS: Pelvic Organs: Unremarkable. Bladder: No bladder wall thickening, accounting for underdistention. Pelvic Nodes: No enlarged lymph nodes. Miscellaneous: No inguinal hernias are seen. Bones: No aggressive osseous abnormality. IMPRESSION: Gastric bypass. Intussusception of the small bowel anastomosis in the left mid quadrant. Consider CT enterography or MRI enterography to exclude a lead point mass. 1.7 centimeter left adrenal nodule with indeterminate attenuation. Recommend dedicated CT or MRI for characterization (adrenal mass protocol). 4 millimeter nonobstructing right-sided renal stone. Colonic diverticulosis without evidence of diverticulitis. Dictated by: Talib Spencer M.D. on 09/07/2023 at 12:03 Approved by: Talib Spencer M.D. on 09/07/2023 at 12:13
== END ==
LOC: CT 06:59
PROVIDERS: PCP Family Medicine; Referring Provider Internal Medicine Gastroenterology; Visit Provider Internal Medicine Gastroenterology
DX: K91.30 Postprocedural intestinal obstruction, unspecified as to partial versus complete (principal); N20.0 Calculus of kidney; K57.90 Diverticulosis of intestine, part unspecified, without perforation or abscess without bleeding; E27.9 Disorder of adrenal gland, unspecified; R10.10 Upper abdominal pain, unspecified; Z98.84 Bariatric surgery status
CPT/HCPCS: 74177; Q9967

== ENCOUNTER → 2023-09-28 10:27 | Outpatient (CLI) | payer MEDICARE, OTHER, SELFPAY ==
--- NOTE | 2023-09-28 10:30 | DI.CT.S_ITS ---
PROCEDURE: CT ABDOMEN ADRENAL PROTOCOL INDICATIONS: Lesion of Adrenal Gland TECHNIQUE: Noncontrast 3 mm thick sections acquired from the diaphragms to the iliac crests. After the administration of intravenous contrast, 3 mm thick venous-phase and 15-minute delayed images acquired from the diaphragms to the iliac crests. For radiation dose reduction, the following was used: automated exposure control, adjustment of mA and/or kV according to patient size. COMPARISON: [facility], CT, CT ABDOMEN PELVIS W CON, 09/07/2023, 8:23. FINDINGS: Image quality: Diagnostic Lower chest: Scarring/atelectasis particularly in the left lower lobe. Small hiatal hernia and gastric bypass changes. Liver: Unremarkable. Subcentimeter lesions are too small to characterize, usually cysts Gallbladder and biliary system: Absent, nondilated allowing for postsurgical state Pancreas: Moderate parenchymal atrophy. No ductal dilation Spleen: Nonenlarged. Anterior calcification again seen Adrenals: Lipid rich left adrenal nodule compatible with adenoma measuring 1.8 cm. Kidneys: Small nonobstructing right lower pole renal calculus. Possible parapelvic cysts. No complicated or solid lesion requiring follow-up identified. No discrete hydronephrosis Vessels and lymph nodes: The main portal vein is patent. No abdominal aortic aneurysm or pathologic lymph nodes by size criteria. Bowel and peritoneum: Gastric wall thickening is present. Bypass changes. No pathologic ascites. There is possible subtle peritoneal nodularity, for example in the anterior upper midline measuring 9 x 7 mm (3/50). Body wall: Unremarkable Bones: Degenerative changes, no acute or suspicious abnormality. IMPRESSION: Left adrenal lipid rich adenoma. Consider correlation with laboratory testing to determine functional status. Gastric wall thickening is present. Bypass changes. There is possible subtle peritoneal nodularity (for example 3/50, measuring 9 x 7 mm on a single axial slice). Consider GI follow-up and possible PET-CT depending on clinical context. Other findings as above. Dictated by: Rd Scherer M.D. on 09/28/2023 at 14:53 Approved by: Rd Scherer M.D. on 09/28/2023 at 15:06
[2023-09-28 10:53] LABS: Estimated Glomerular Filt Rate > 60 mL/min (>60)
== END ==
LOC: CT 10:29
PROVIDERS: Radiology Diagnostic Radiology; PCP Family Medicine; Referring Provider Internal Medicine Gastroenterology; Visit Provider Internal Medicine Gastroenterology
DX: E27.9 Disorder of adrenal gland, unspecified (principal); R10.13 Epigastric pain; K44.9 Diaphragmatic hernia without obstruction or gangrene; N20.0 Calculus of kidney
CPT/HCPCS: 36415; 74170; 82565; Q9967

== ENCOUNTER → 2023-10-05 09:05 | Outpatient (CLI) | payer MEDICARE, OTHER, SELFPAY ==
--- NOTE | 2023-10-05 09:07 | DI.MRI.S_ITS ---
PROCEDURE: MR ENTEROGRAPHY PROTOCOL INDICATIONS: Intussusception TECHNIQUE: After the ingestion of oral contrast, coronal and axial HASTE, coronal 2-D FLASH in-and [id number] sequences. After the administration of contrast, coronal and axial VIBE or 2-D FLASH with fat saturation sequences acquired through the abdomen and pelvis. Optional diffusion weighted imaging and ADC may be performed. COMPARISON: None. FINDINGS: Image quality: Excellent. Bowel and peritoneum: Prior Marilyn-en-Y gastric bypass. Resolved intussusception at the anastomosis. Colonic interposition between the liver and hemidiaphragm. Colonic diverticulosis without evidence of diverticulitis. Image quality: Diagnostic. Lung bases: Unremarkable. Liver: No solid mass. Gallbladder: Absent. Biliary ducts: No biliary dilation. No evidence of PSC. Pancreas: No ductal dilation. Spleen: Size is within normal limits. Adrenal Glands: Left adrenal nodule with signal dropout on the out of phase sequence, consistent with a benign adrenal adenoma. This measures 1.8 centimeter. Kidneys and Ureters: No hydronephrosis. No solid mass. No complex renal cystic lesion which requires follow up. Peritoneum: No abnormal intraperitoneal fluid. No free air. Ventral Wall: No hernia. Abdominal Nodes: No retroperitoneal or mesenteric adenopathy by size criteria. Vessels: Aorta and inferior vena cava are normal in size. Pelvis: No pelvic mass. Blood products within the endometrium. There is a round mass within the endometrial cavity measuring 1.4 centimeter (series 30, image 46). Bones: No aggressive osseous abnormality. IMPRESSION: Resolved intussusception. Colonic diverticulosis without evidence of diverticulitis. Benign left adrenal adenoma by signal imaging characteristics. [employer] recommend routine biochemical screening to exclude a functional adenoma. Colonic interposition between the liver and hemidiaphragm, which can be symptomatic. Blood products within the endometrium, and rounded mass within the endometrial cavity measuring 1.4 centimeter. Recommend evaluation with pelvic ultrasound. Dictated by: Talib Spencer M.D. on 10/06/2023 at 11:00 Approved by: Talib Spencer M.D. on 10/06/2023 at 11:27
== END ==
PROVIDERS: PCP Family Medicine; Referring Provider Internal Medicine Gastroenterology; Visit Provider Internal Medicine Gastroenterology
DX: K56.1 Intussusception (principal); D35.02 Benign neoplasm of left adrenal gland; K57.90 Diverticulosis of intestine, part unspecified, without perforation or abscess without bleeding; Z90.49 Acquired absence of other specified parts of digestive tract; Z98.84 Bariatric surgery status
CPT/HCPCS: 72197; 74183; A9579

== ENCOUNTER → 2023-11-29 09:00 | Outpatient (CLI) | payer MEDICARE, OTHER, SELFPAY ==
--- NOTE | 2023-11-29 09:03 | DI.US.S_ITS ---
PROCEDURE: US PELVIC COMPLETE INDICATIONS: ENDOMETRIAL MASS FOLLOW UP TECHNIQUE: Real-time scanning was performed of the pelvic organs, with image documentation. Additional endovaginal scanning was necessary due to incomplete visualization of the adnexal and endometrial structures by transabdominal scanning. COMPARISON: [facility], CT, CT ABDOMEN PELVIS W CON, 09/07/2023, 8:23. [facility], [place], PET NECK TO MID THIGH, 11/09/2023, 11:58. FINDINGS: Uterus: Uterus is anteverted and normal in size at 5.8 x 5.0 x 3.4 cm. The myometrium is homogeneous. The endometrium measures 1 mm combined thickness. There are 2 echogenic foci within the endometrium. These measure 2.0 x 1.4 x 1.0 cm with cystic and solid components at the fundus, and 1.1 x 1.2 x 0.4 cm along the lower uterine segment. Ovaries: The right ovary measures 3.5 x 2.6 x 2.1 cm, with a calculated ovarian volume of 10 cc. The left ovary measures 2.3 x 1.9 x 1.6 cm, with a calculated ovarian volume of 4 cc. The ovaries have a normal sonographic appearance. There is a solid right ovarian lesion measuring 1.8 x 1.5 x 0.9 cm. Additional simple right ovarian cysts present, largest measuring 1.3 x 1.1 cm. Other: No pathologic free abdominal or pelvic fluid. IMPRESSION: A couple echogenic filling defects within the endometrium, could represent malignancy. Recommend tissue sampling. Solid-appearing right ovarian lesion measuring 1.8 x 1.5 x 0.9 cm. This could alternatively be the primary malignancy. We strive to produce accurate, complete, and clear reports of imaging services. To assist us in improving patient care, this report was composed using standard report templates and voice recognition software. Therefore, it may contain abnormal punctuation, insertions and/or omissions. Occasional wrong-word or sound-alike substitutions may occur. Though we review the report and make efforts to correct it, we do recommend that the report be read carefully in proper context to recognize any text inaccuracies. Dictated by: Talib Spencer M.D. on 11/29/2023 at 12:14 Approved by: Talib Spencer M.D. on 11/29/2023 at 12:18
== END ==
PROVIDERS: PCP Family Medicine; Referring Provider Obstetrics & Gynecology Gynecologic Oncology; Visit Provider Obstetrics & Gynecology Gynecologic Oncology
DX: C80.0 Disseminated malignant neoplasm, unspecified (principal); D39.0 Neoplasm of uncertain behavior of uterus; C78.6 Secondary malignant neoplasm of retroperitoneum and peritoneum; N93.9 Abnormal uterine and vaginal bleeding, unspecified
CPT/HCPCS: 36415; 76830; 76856; 86304

== ENCOUNTER 2024-01-18 12:28 | Emergency (ER) | payer MEDICARE, OTHER, SELFPAY ==
[2024-01-18] VITALS (13 sets, daily range): BP systolic 98–120; BP diastolic 56–75; PULSE 62–83; RESP 17; TEMP 36.6; O2SAT 72–99; BMI 22.4
--- NOTE | 2024-01-18 13:23 | EKG_ITS ---
[place] [id number] [place] [id number] Test Date: 2024-01-18 Pat Name: Tess Desai Department: [facility] Room: Gender: Female Jboss Architect: RICHIE : 1945 Requested By: Order Number: [id number] Reading MD: Vj Avila MD Measurements Intervals [place] Rate: 78 P: 5 AL: 170 QRS: -40 QRSD: 78 T: -11 QT: 388 QTc: 442 Interpretive Statements Normal sinus rhythm with sinus arrhythmia Left axis deviation Low voltage QRS Cannot rule out Anterior infarct , age undetermined Electronically Signed On 01-19-2024 8:05:54 PST by Vj Avila MD
[2024-01-18 13:24] LABS: Add Manual Diff / Slide Review NO; Basophils Absolute Auto 0 /uL (0-100); Basophils Percent Auto 0.5 % (0-2); Eosinophils Absolute Auto 200 /uL (0-450); Eosinophils Percent Auto 2.9 % (2-4); Hematocrit 36.9 % (36-46); Lymphocytes Absolute Auto 1500 /uL (1100-4500); Lymphocytes Percent Auto 28.5 % (25-40); Mean Corpuscular HGB Conc 32.6 % (30-36); Mean Corpuscular Hemoglobin 28.9 PG (26-34); Mean Corpuscular Volume 88.5 fL (80-100); Monocytes Absolute Auto 700 /uL (0-900); Monocytes Percent Auto 13.3 % (3-14); Neutrophils Absolute Auto 2900 /uL (1500-7000); Neutrophils Percent Auto 54.8 % (50-75); Platelet Count 282 X10^3/uL (150-400); Red Blood Cell Count 4.17 X10^6/uL (4.0-5.2); Red Cell Distribution Width 15.2 % (11.6-14.8); White Blood Cell Count 5.3 X10^3/uL (4.5-11.0)
[2024-01-18 13:33] LABS: Alanine Aminotransferase 10 IU/L (<35); Albumin 3.9 g/dL (3.5-5.0); Albumin Globulin Ratio 1.3 (1.0-2.8); Alkaline Phosphatase 81 U/L (38-126); Aspartate Aminotransferase 21 IU/L (14-36); BUN Creatinine Ratio 17.7 (6-22); Bilirubin Total 0.7 mg/dL (0.2-1.3); Blood Urea Nitrogen 14 mg/dL (7-17); Calcium 9.2 mg/dL (8.4-10.2); Carbon Dioxide 26 mmol/L (22-32); Chloride 104 mmol/L (98-107); Estimated Glomerular Filt Rate > 60 mL/min (>60); Globulin 2.9 g/dL (1.7-4.1); Glucose 110 mg/dL (80-110); HEMOLYSIS < 15 (0-50); Lipase 41 U/L (23-300); Potassium 4.1 mmol/L (3.4-5.1); Sodium 135 mmol/L (137-145); Total Protein 6.8 g/dL (6.3-8.2)
--- NOTE | 2024-01-18 14:17 | ED_ITS ---
HPI - General Adult General Chief complaint: Abdominal Pain Stated complaint: abd cramps, rt side back px snt by [facility] Time Seen by Provider: 01/18/24 14:15 Source: patient Mode of arrival: Ambulatory History of Present Illness HPI narrative: 78-year-old woman with a history of gastric bypass had a recent pelvic ultrasound that suggested possible ovarian tumor or endometrial abnormality. Reportedly had a D&C done [place] and she has had significant pelvic cramping since then. She describes no vaginal bleeding prior to her D&C and slight spotting over the weeks since. Persistent abdominal discomfort described as menstrual cramping. She is having regular bowel movements In reviewing records from [facility] as well as [facility] some information is available and some is not. 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 Patient underwent hysteroscopy and D&C and was told that the endometrial tissue was benign In trying to understand more their notes from GI and OBGYN discussing carcinomatosis, pelvic ultrasound done on 11/28 showed a solid-appearing right ovarian lesion measuring 1.8 x 1.5 point by 0.[address] scan of the abdomen on September 27 showed gastric wall thickening and possible subtle peritoneal nodularity. CA 125 at that time was normal at 11 Patient has never heard the term carcinomatosis. Related Data Home Medications Medication Instructions Recorded Confirmed rabeprazole 20 mg tablet,delayed 20 mg PO 10/04/22 07/20/23 release lorazepam 2 mg/mL oral concentrate 0.25 mg PO BID PRN 01/12/23 07/20/23 (Lorazepam Intensol) fluoxetine 10 mg capsule 10 mg PO DAILY 07/20/23 07/20/23 Previous Rx's Medication Instructions Recorded hydrocodone 5 mg-acetaminophen 300 1 tab PO BEDTIME PRN pain #14 tabs 01/12/23 mg tablet acetaminophen 300 mg-codeine 30 mg 1 tab PO BID PRN pain #60 tabs 04/11/23 tablet hydroxyzine pamoate 25 mg capsule 25 mg PO BID PRN pain (scale score 05/16/23 (Vistaril) 4-6) #30 caps ondansetron 4 mg disintegrating 4 mg PO Q8H PRN nausea and 06/29/23 tablet vomiting #10 tabs diazepam 10 mg tablet (Valium) 10 mg PO .COMPLEX PRN 1-2 prior to 07/20/23 MRI and for possible steroid flare #10 tabs hydrocodone 5 mg-acetaminophen 325 1 tab PO Q6-8H PRN pain #20 tabs 01/18/24 mg tablet Allergies Allergy/AdvReac Type Severity Reaction Status Date / Time tramadol AdvReac Severe itching Verified 01/18/24 12:57 milk AdvReac Intermediate stomach Verified 01/18/24 12:57 cramps Review of Systems Review of Systems Narrative: Pertinent positive and negative findings as per HPI Patient History Medical History Scoliosis Panic attacks Spondylosis, lumbosacral Facet arthropathy, lumbar History of hiatal hernia Surgical History History of gastric bypass H/O gastric bypass H/O wrist surgery Family History Father Lung disease Mother A-fib Heart disease Brother Kidney stone Grandmother Stomach cancer Grandfather Heart disease Social History Smoking Status: Never smoker Smoking Status: Never smoker Substance Use Type: does not use Exam Initial Vital Signs Initial Vital Signs: Vital Signs Temperature 98 F 01/18/24 12:53 Pulse Rate 76 01/18/24 12:53 Respiratory Rate 17 01/18/24 12:53 Blood Pressure 111/62 01/18/24 12:53 Pulse Oximetry 98 01/18/24 12:53 Oxygen Delivery Method Room Air 01/18/24 12:53 General: Healthy appearing, in no acute distress. Able to give a complete and coherent history. Well-nourished well-developed HEENT: Moist mucous membranes, normal sclera with reactive pupils, Respiratory: Lungs are clear to auscultation, no wheezing no rales no rhonchi. Full and symmetrical air movement Cardiac: Regular rate and rhythm no murmurs no bruits Abdomen: Soft, diffuse tenderness without rebound or guarding Skin: Warm and dry, no rashes Neurologic: Grossly neurologically intact with no obvious asymmetries or abnormalities Extremities: No trauma, well perfused Psych: Cooperative, appropriate insight and affect Course Orders Ordered: ED Orders 01/18/24 12:58 EKG-12 Lead Stat 01/18/24 13:10 Complete Blood Count AUTO DIFF Stat Comprehensive Metabolic Panel Stat Lipase Stat 01/18/24 15:25 CT abdomen pelvis w con Stat 01/18/24 15:42 Urine Culture Stat Urine Microscopic Stat Ondansetron HCl (Ondansetron 4 Mg/2 Ml Inj) 4 mg IV NOW PRN PRN Reason: Nausea And Vomiting Ondansetron HCl (Ondansetron 4 Mg Odt) 4 mg PO NOW PRN PRN Reason: Nausea And Vomiting Vital Signs Vital signs: Vital Signs - 8 hr 01/18/24 12:53 01/18/24 13:50 01/18/24 13:51 Temperature 98 F Pulse Rate 76 Respiratory Rate 17 Blood Pressure 111/62 116/75 Pulse Oximetry 98 72 L Oxygen Delivery Method Room Air 01/18/24 13:51 01/18/24 14:00 01/18/24 14:00 Temperature Pulse Rate 71 73 Respiratory Rate Blood Pressure 120/67 Pulse Oximetry 95 99 Oxygen Delivery Method 01/18/24 14:30 01/18/24 14:30 01/18/24 15:00 Temperature Pulse Rate 75 68 Respiratory Rate Blood Pressure 111/64 Pulse Oximetry 97 99 Oxygen Delivery Method 01/18/24 15:00 Temperature Pulse Rate Respiratory Rate Blood Pressure 98/67 Pulse Oximetry Oxygen Delivery Method Medical Decision Making Lab Data 01/18/24 13:10 01/18/24 13:10 Labs: Lab Results 01/18/24 01/18/24 Range/Units 13:10 15:42 WBC 5.3 (4.5-11.0) X10^3/uL RBC 4.17 (4.0-5.2) X10^6/uL Hgb 12.0 (12.0-16.0) g/dL Hct 36.9 (36-46) % MCV 88.5 (80-100) fL MCH 28.9 (26-34) PG MCHC 32.6 (30-36) % RDW 15.2 H (11.6-14.8) % Plt Count 282 (150-400) X10^3/uL Neut % (Auto) 54.8 (50-75) % Lymph % (Auto) 28.5 (25-40) % [place] % (Auto) 13.3 (3-14) % Eos % (Auto) 2.9 (2-4) % Baso % (Auto) 0.5 (0-2) % Neut # (Auto) 2900 (7400-1807) /uL Lymph # (Auto) 1500 (3093-3657) /uL [place] # (Auto) 700 (0-900) /uL Eos # (Auto) 200 (0-450) /uL Baso # (Auto) 0 (0-100) /uL Sodium 135 L (137-145) mmol/L Potassium 4.1 (3.4-5.1) mmol/L Chloride 104 (98-107) mmol/L Carbon Dioxide 26 (22-32) mmol/L BUN 14 (7-17) mg/dL Creatinine 0.79 (0.52-1.04) mg/dL Estimated GFR > 60 (>60) mL/min BUN/Creatinine Ratio 17.7 (6-22) Glucose 110 (80-110) mg/dL Calcium 9.2 (8.4-10.2) mg/dL Total Bilirubin 0.7 (0.2-1.3) mg/dL AST 21 (14-36) IU/L ALT 10 (<35) IU/L Alkaline Phosphatase 81 (38-126) U/L Total Protein 6.8 (6.3-8.2) g/dL Albumin 3.9 (3.5-5.0) g/dL Globulin 2.9 (1.7-4.1) g/dL Albumin/Globulin Ratio 1.3 (1.0-2.8) Lipase 41 (23-300) U/L Urine RBC 1-5/hpf (0-5/HPF) Urine WBC 5-10/hpf H (0-5/HPF) Ur Squamous Epith Cells 5-10 /hpf H (0-5/HPF) Urine Bacteria Few (2-10) H (None) Urine Mucus 1+ H (Negative) Ur Culture Indicated? Specimen cultured Vol Urine Centrifuged 10ml (spun) Urine Dip Bedside Urine Glucose Negative Bedside Urine Bilirubin - Negative Bedside Urine Ketone - Negative Urine Specific [place] 1.015 Bedside Urine Occult Blood + Bedside Urine pH 6.0 Bedside Urine Protein - Negative Bedside Urine Urobilinogen - Negative Bedside Urine Nitrite - Negative Bedside Urine Leukocytes +/- 15 Esterase Point of care testing: Urine Dip Bedside Urine Glucose Negative Bedside Urine Bilirubin - Negative Bedside Urine Ketone - Negative Urine Specific [place] 1.015 Bedside Urine Occult Blood + Bedside Urine pH 6.0 Bedside Urine Protein - Negative Bedside Urine Urobilinogen - Negative Bedside Urine Nitrite - Negative Bedside Urine Leukocytes +/- [address] scan - abdomen/pelvis: Radiologist's Impression: PROCEDURE: CT ABDOMEN PELVIS W CON INDICATIONS: abdomonial cramping TECHNIQUE: After the administration of intravenous contrast, axial sections acquired from the lung bases to the pubic symphysis. Coronal and sagittal reformats were performed. For radiation dose reduction, the following was used: automated exposure control, adjustment of mA and/or kV according to patient size. COMPARISON: [facility], CT, CT ABDOMEN PELVIS W CON, 09/07/2023, 8:23. FINDINGS: Image quality: Diagnostic. Lower Chest: No significant findings. ABDOMEN: Liver: No solid mass. Gallbladder: Absent . Biliary ducts: No biliary dilation. Pancreas: No ductal dilation. Spleen: Size is within normal limits. Adrenal Glands: Stable left adrenal adenoma. Kidneys and Ureters: No hydronephrosis. No solid mass. No complex renal cystic lesion which requires follow up. 4 mm nonobstructing right-sided nephrolithiasis. Stomach and Bowel: Normal colonic caliber, without significant wall thickening. Gastric bypass. Colonic interposition between the liver and hemidiaphragm. Colonic diverticulosis without evidence of diverticulitis. Peritoneum: Growing peritoneal nodules. For instance, the 1.6 cm nodule in the upper midline abdomen measuring 1.6 cm, previously 0.8 cm (series 2, image 55). Ventral Wall: No significant ventral hernia. Abdominal Nodes: No retroperitoneal or mesenteric adenopathy by size criteria. Vessels: Aorta and inferior vena cava are normal in size. PELVIS: Pelvic Organs: Dilation of the endometrium, measuring 1.6 cm. Similar size of the ovaries. Bladder: No bladder wall thickening, accounting for underdistention. Pelvic Nodes: No enlarged lymph nodes. Miscellaneous: No inguinal hernias are seen. Bones: No aggressive osseous abnormality. IMPRESSION: Colonic interposition between the liver and hemidiaphragm, which may be symptomatic. Colonic diverticulosis without evidence of diverticulitis. Growing peritoneal nodules, most consistent with peritoneal carcinomatosis. Similar thickening of the endometrium and stable appearance of the ovaries, which could represent the primary malignancy. Dictated by: Talib Spencer M.D. on 01/18/2024 at 15:55 MDM Narrative Medical decision making narrative: CC: Continued aching cramping abdominal pain Complicating co-morbidities: Prior gastric bypass, recent D&C for abnormal uterine findings on PET scan, mentioned of carcinomatosis on PET scan and abnormal ovary and pelvic ultrasound with no clear follow up Data collected from: patient, partner Medical records reviewed: Please see HPI above. Notes from [facility] with imaging studies, Gastroenterology, imaging and PET scan from [facility] and some notes available from [facility] without full details from [facility] from post op visit 12/20/[address] Cason we discussed the procedure and findings reviewed the pathology. I do not recommend anything further be done at this time. Her upper abdominal pain was likely from the intussusception that resolved without intervention. I asked her to pay attention to abnormal symptoms and to present to her other physicians, PCP and manager tax as needed for further workup. 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 They can decide how best follow the patient either symptomatically versus scheduled imaging considering the abnormality seen on different imaging modalities ? From her op note with diagnostic laparoscopy there was mentioned that no peritoneal studding or omental abnormalities were seen at time of surgery Differential considered: Carcinomatosis, bowel obstruction, other intra- abdominal abnormality Exam documented above, pertinent findings include: Diffuse tenderness of the abdomen without rebound or guarding Lab Test results independently reviewed as above. Pertinent findings: CBC is unremarkable Chemistries are reassuring Independently reviewed EKG: EKG shows sinus rhythm at a rate of 78. No acute ischemic changes Imaging studies independently reviewed: CT scan confirms growing peritoneal nodules, most consistent with peritoneal carcinomatosis.Similar thickening of the endometrium and stable appearance of the ovaries, Consultations: Discussion with gastroenterology, [place]. At this point his recommendation is to follow up with Gyne Onc Dr De La Cruz reviewed care with her. At time of surgery she did not see peritoneal or omental abnormalities. Reviewed next steps. Question is next steps in light of the increased pain and CT suggesting progression of carcinomatosis that they did not see in recent surgery. Treatments: Zofran, toraol Discussion: 78-year-old woman recently had a D&C at [facility] after a positive PET scan suggested carcinomatosis with endometrial abnormalities. The surgeon with whom she worked reassured Tess that she had no cancer. It does appear that the endometrial biopsy did not show endometrial carcinoma. Patient is absolutely unaware of the peritoneal carcinomatosis that was appreciated on PET scan and reconfirmed with growing nodules on CT scan concerning for cause of her overall abdominal cramping pain. Again in discussion with Dr. De La Cruz, she did not see carcinomatosis during the surgical procedure. CT scan shows progression Dr. Watson we will have the patient back in clinic and together they will figure it with the next step needs to be. Patient is given a small prescription for Vicodin to help with abdominal pain along with instructions to use stool softeners as needed. She will expect a call from Dr. De La Cruz. There was no indication for hospitalization or additional imaging at this time she is safe for discharge Discharge Plan Departure Patient Disposition: Home Clinical Impression: Abdominal carcinomatosis Abdominal pain Qualifiers: Abdominal location: lower abdomen, unspecified Qualified Code(s): R10.30 - Lower abdominal pain, unspecified Activity Restrictions/Additional Instructions: Thank you for coming in today In speaking with Dr De La Cruz, during surgery, she did not see any abnormalities growing on the peritoneum as has been described with the 1st CT scan and PET scan. With your pain today we repeated the CT scan and unfortunately it is suggesting that some of the nodules that were able to be seen radiographically have grown. I have spoken with Dr. De La Cruz, somebody from her office we will give you a call so that you can be seen in her clinic again to figure out what the next step needs to be I have given you a small prescription for Vicodin to use for abdominal pain if needed. Narcotics do cause constipation, make sure that use a stool softener as needed If you find that you are getting worse or develop any new symptoms, please feel free to return to the emergency department for further evaluation. Prescriptions: New hydrocodone-acetaminophen 5-325 mg tablet 1 tab PO Q6-8H PRN (Reason: pain) Qty: 20 0RF No Action hydroxyzine pamoate [Vistaril] 25 mg capsule 25 mg PO BID PRN (Reason: pain (scale score 4-6)) Qty: 30 1RF ondansetron 4 mg tablet,disintegrating 4 mg PO Q8H PRN (Reason: nausea and vomiting) Qty: 10 0RF rabeprazole 20 mg tablet,delayed release (DR/EC) 20 mg PO lorazepam [Lorazepam Intensol] 2 mg/mL concentrate 0.25 mg PO BID PRN hydrocodone-acetaminophen 5-300 mg tablet 1 tab PO BEDTIME PRN (Reason: pain) Qty: 14 0RF fluoxetine 10 mg capsule 10 mg PO DAILY diazepam [Valium] 10 mg tablet 10 mg PO .COMPLEX MDD 3 tabs PRN (Reason: 1-2 prior to MRI and for possible steroid flare) Qty: 10 0RF Rx Instructions: 10 mg PO PRN; acetaminophen-codeine 300-30 mg tablet 1 tab PO BID PRN (Reason: pain) Qty: 60 1RF Referrals: Hussain Narayanan DO [Primary Care Provider] - Stand Alone Forms: Patient Portal/API/Survey
--- NOTE | 2024-01-18 15:25 | DI.CT.S_ITS ---
PROCEDURE: CT ABDOMEN PELVIS W CON INDICATIONS: abdomonial cramping TECHNIQUE: After the administration of intravenous contrast, axial sections acquired from the lung bases to the pubic symphysis. Coronal and sagittal reformats were performed. For radiation dose reduction, the following was used: automated exposure control, adjustment of mA and/or kV according to patient size. COMPARISON: [facility], CT, CT ABDOMEN PELVIS W CON, 09/07/2023, 8:23. FINDINGS: Image quality: Diagnostic. Lower Chest: No significant findings. ABDOMEN: Liver: No solid mass. Gallbladder: Absent . Biliary ducts: No biliary dilation. Pancreas: No ductal dilation. Spleen: Size is within normal limits. Adrenal Glands: Stable left adrenal adenoma. Kidneys and Ureters: No hydronephrosis. No solid mass. No complex renal cystic lesion which requires follow up. 4 mm nonobstructing right-sided nephrolithiasis. Stomach and Bowel: Normal colonic caliber, without significant wall thickening. Gastric bypass. Colonic interposition between the liver and hemidiaphragm. Colonic diverticulosis without evidence of diverticulitis. Peritoneum: Growing peritoneal nodules. For instance, the 1.6 cm nodule in the upper midline abdomen measuring 1.6 cm, previously 0.8 cm (series 2, image 55). Ventral Wall: No significant ventral hernia. Abdominal Nodes: No retroperitoneal or mesenteric adenopathy by size criteria. Vessels: Aorta and inferior vena cava are normal in size. PELVIS: Pelvic Organs: Dilation of the endometrium, measuring 1.6 cm. Similar size of the ovaries. Bladder: No bladder wall thickening, accounting for underdistention. Pelvic Nodes: No enlarged lymph nodes. Miscellaneous: No inguinal hernias are seen. Bones: No aggressive osseous abnormality. IMPRESSION: Colonic interposition between the liver and hemidiaphragm, which may be symptomatic. Colonic diverticulosis without evidence of diverticulitis. Growing peritoneal nodules, most consistent with peritoneal carcinomatosis. Similar thickening of the endometrium and stable appearance of the ovaries, which could represent the primary malignancy. Dictated by: Talib Spencer M.D. on 01/18/2024 at 15:55 Approved by: Talib Spencer M.D. on 01/18/2024 at 15:59
[2024-01-18 16:08] LABS: Bacteria Urine Few (2-10); RBC Urine 1-5/HPF (0-5/HPF); Squamous Epithelial Cell Urine 5-10 /HPF (0-5/HPF); Urine Volume 10mL (spun); WBC Urine 5-10/HPF (0-5/HPF)
[2024-01-18 16:09] LABS: Culture Indicated Urine Specimen Cultured; Mucus Urine 1+ (Negative)
[2024-01-18] MEDS: KETOROLAC 30 MG/ML VIAL 15 MG IV (18:25)
== END 2024-01-18 18:25 | disposition home or self-care (01) ==
PROVIDERS: Emergency Provider Emergency Medicine; PCP Family Medicine
DX: R10.30 Lower abdominal pain, unspecified (principal); C76.2 Malignant neoplasm of abdomen; I49.8 Other specified cardiac arrhythmias
CPT/HCPCS: 74177; 80053; 81003; 81015; 83690; 85025; 87086; 93005; 93010; 96374; 99283; 99284; J1885

== ENCOUNTER → 2024-04-12 11:14 | Outpatient (CLI) | payer MEDICARE, OTHER, SELFPAY ==
[2024-04-12 12:22] LABS: Estimated Glomerular Filt Rate > 60 mL/min (>60)
== END ==
PROVIDERS: PCP Family Medicine; Referring Provider Internal Medicine Gastroenterology; Visit Provider Internal Medicine Gastroenterology
DX: R19.00 Intra-abdominal and pelvic swelling, mass and lump, unspecified site (principal)
CPT/HCPCS: 36415; 82565

== ENCOUNTER 2024-09-23 13:43 | Emergency (ER) | payer MEDICARE, OTHER, SELFPAY ==
[2024-09-23 13:56] VITALS: BP 111/68; PULSE 90; RESP 17; TEMP 36.7; O2SAT 96; BMI 22.8
--- NOTE | 2024-09-23 14:04 | ED_ITS ---
HPI - Fall General Chief Complaint: Fall Stated Complaint: Fell backwards/hit head/tailbone/back Time Seen by Provider: 09/23/24 14:03 Source: patient Mode of arrival: Ambulatory History of Present Illness HPI Narrative: Ms. Desai is a very pleasant 78-year-old female with a past medical history of scoliosis, gastric bypass, lumbosacral spondylosis who presents to the emergency department for head/tailbone/back pain after a fall that occurred yesterday afternoon. Patient states that she was attempting to step over a small fence while her grandson was holding her hand, as she went to bring her 2nd leg over the fence she tripped and fell backwards hitting her tailbone and then her head. She had immediate pain of the back of her head and her tailbone however she was able to stand up with assistance and did not seek medical harjinder luation at that time. However as time has gone on she is developed soreness of her low back as well as soreness on both sides of her neck in addition to still having a headache and tailbone pain. She is also having pain on the lateral aspect of her left knee and believes she twisted it. Patient is ambulatory and drove herself to the emergency department. No bowel or bladder dysfunction, chest pain, shortness of breath, loss of consciousness, visual disturbance, nausea or vomiting, lower extremity numbness tingling or weakness. Patient does take Excedrin migraine frequently for pain but this has not been helping. Related Data Home Medications ?Medication ?Instructions ?Recorded ?Confirmed rabeprazole 20 mg tablet,delayed 20 mg PO 10/04/2211/04 release lorazepam 2 mg/mL oral concentrate 0.25 mg PO BID PRN 01/12/23 07/20/23 (Lorazepam Intensol) fluoxetine 10 mg capsule 10 mg PO DAILY 07/20/2311/04 Previous Rx's ?Medication ?Instructions ?Recorded hydrocodone 5 mg-acetaminophen 300 1 tab PO BEDTIME NH N pain #14 tabs 01/12/23 mg tablet acetaminophen 300 mg-codeine 30 mg 1 tab PO BID PRN pa in #60 tabs 04/11/23 tablet hydroxyzine pamoate 25 mg capsule 25 mg PO BID PRN micky n (scale score 05/16/23 (Vistaril) 4-6) #30 caps ondansetron 4 mg disintegrating 4 mg PO Q8H PRN nausea and 06/29/23 tablet vomiting #10 tabs diazepam 10 mg tablet (Valium) 10 mg PO .COMPLEX PRN 1 -2 prior to 07/20/23 MRI and for possible steroid flare #10 tabs hydrocodone 5 mg-acetaminophen 325 1 tab PO Q6-8H PRN pain #20 tabs 01/18/24 mg tablet hydrocodone 5 mg-acetaminophen 325 1 tab PO Q4-6H PRN pain #10 tabs 09/23/24 mg tablet lidocaine 5 % topical patch 1 patch topical DAILY #30 ea 09/23/24 (Lidoderm) Allergies Allergy/AdvReac Type Severity Reaction Status Date / Time tramadol AdvReac Severe itching Verified 09/23/24 13:56 milk AdvReac Intermediate stomach Verified 09/23/24 13:56 cramps Review of Systems Review of Systems ROS Unobtainable: All systems reviewed & are unremarkable except as noted in HPI and below Patient History Medical History Scoliosis Panic attacks Spondylosis, lumbosacral Facet arthropathy, lumbar History of hiatal hernia Surgical History History of gastric bypass H/O gastric bypass H/O wrist surgery Family History Father Lung disease Mother A-fib Heart disease Brother Kidney stone Grandmother Stomach cancer Grandfather Heart disease Social History Smoking Status: Never smoker Smoking Status: Never smoker Exam Narrative Exam Narrative: GENERAL: 78 year old patient appears stated age. Well-developed patient, in no acute distress. HEAD: Atraumatic. Normocephalic. EYES: PERRL. Extraocular motions intact. No scleral icterus. No injection or drainage. ENT: Nose without bleeding, purulent drainage. NECK: Trachea midline. Cervical ROM intact. No midline cervical tenderness. Subjective pain on bilateral lateral neck region. CARDIOVASCULAR: Regular rate and rhythm. RESPIRATORY: ?Nonlabored respirations. ?Speaking in clear, full sentences. ?Clear to auscultation. Breath sounds equal bilaterally. No wheezes, rales, or rhonchi. ? GASTROINTESTINAL: Abdomen soft, non-tender, nondistended. EXTREMITIES: No edema. No tenderness to palpation of bilateral upper extremities and right lower extremity feeling ecchymosis on left forearm. Tenderness to palpation of lateral left knee and subjective pain and lateral region with flexion-extension, no reproducible joint laxity. No open wounds. BACK: Tenderness to palpation of midline sacrum and bilateral lumbar paraspinal regions. No open wounds or deformities. No midline thoracic tenderness. No ribcage tenderness. NEURO: AOx3. ?Clear speech. ?Moves all 4 extremities appropriately. Ambulatory independently without assistance. SKIN: No rash or erythema of visible areas. No open wounds. Initial Vital Signs Initial Vital Signs: Vital Signs Temperature 98.0 F 09/23/24 13:56 Pulse Rate 90 09/23/24 13:56 Respiratory Rate 17 09/23/24 13:56 Blood Pressure 111/68 09/23/24 13:56 Pulse Oximetry 96 09/23/24 13:56 Oxygen Delivery Method Room Air 09/23/24 13:56 Course Orders Ordered: ED Orders 09/23/24 14:24 CT cervical spine wo con Stat CT head/brain wo con Stat CT lumbar spine wo con Stat XR knee LT 3V Stat Discontinued Medications Acetaminophen (Acetaminophen 325 Mg Tablet) 650 mg PO NOW ONE Stop: 09/23/24 14:25 Last Admin: 09/23/24 14:57 Dose: 650 mg Documented By: MAGALI Lidocaine (Lidocaine 5% Patch) 1 each TOP NOW ONE Stop: 09/23/24 14:25 Last Admin: 09/23/24 14:58 Dose: 1 each Documented By: MAGALI Vital Signs Vital signs: Vital Signs - 8 hr 09/23/24 13:56 09/23/24 16:33 Temperature 98.0 F Pulse Rate 90 60 Respiratory Rate 17 16 Blood Pressure 111/68 126/79 Pulse Oximetry 96 96 Oxygen Delivery Method Room Air Room Air MDM - Fall Medical Records Attestation: I reviewed the patient's medical records. Imaging Data CT scan - head: Radiologist's Impression: PROCEDURE: CT HEAD/BRAIN WO CON INDICATIONS: fall backward hit head no thinners TECHNIQUE: Noncontrast 4.5 mm thick angled axial sections acquired from the foramen magnum to the vertex, with coronal and sagittal reformats. For radiation dose reduction, the following was used: automated exposure control, adjustment of mA and/or kV according to patient size. COMPARISON: [facility], MR, MR BRAIN WITHOUT CONTRAST, 05/30/2024, 12:22. FINDINGS: Image quality: Diagnostic. CSF spaces: Basal cisterns are patent. No extra-axial fluid collections. Ventricles are normal in size and shape. Brain: No midline shift. No intracranial mass effect or hemorrhage. No area of hypodensity in a large vascular distribution to suggest acute infarction. Periventricular hypodensity consistent with chronic microvascular ischemic change. Age-related parenchymal loss. Skull and face: Calvarium and visualized facial bones are intact, without suspicious lesions. Sinuses: Visualized sinuses and mastoids are clear. IMPRESSION: No acute intracranial hemorrhage. Dictated by: Max Ruiz M.D. on 09/23/2024 at 14:31 Approved by: Max Ruiz M.D. on 09/23/2024 at 14:34 CT - cervical spine: Radiologist's Impression: PROCEDURE: CT CERVICAL SPINE WO CON INDICATIONS: fall backward hit head no thinners TECHNIQUE: Noncontrast 3 mm thick sections acquired from the skull base to the T4 level. Sagittal and coronal reformats were then constructed. For radiation dose reduction, the following was used: automated exposure control, adjustment of mA and/or kV according to patient size. COMPARISON: None. FINDINGS: Image quality: Excellent. Bones: No fractures or dislocations. Visualized superior ribs are intact. Soft tissues: Prevertebral soft tissues are normal in thickness. No paravertebral hematomas. No apical pneumothoraces. IMPRESSION: No displaced fracture or traumatic subluxation. Dictated by: Max Ruiz M.D. on 09/23/2024 at 14:34 Approved by: Max Ruiz M.D. on 09/23/2024 at 14:38 CT - Lumbosacral: Radiologist's Impression: [address] [address] [address] Scan Report Signed Patient: Tess Desai MR#: [id number] : 1945 Acct:[id number] Age/Sex: 78 / F Date of Service: 09/23/24 Loc: ED Accession Number: [id number] Procedure: CT lumbar spine wo con Ordering Provider: Rosalba Galdamez PA-C PROCEDURE: CT LUMBAR SPINE WO CON INDICATIONS: fall backward low back and tailbone pain TECHNIQUE: Noncontrast 3 mm thick sections acquired from the T12 level to the sacrum. Sagittal and coronal reformats were constructed. For radiation dose reduction, the following was used: automated exposure control. COMPARISON: [facility], CT, CT ABDOMEN PELVIS WITH CONTRAST, 04/16/2024, 13:47. FINDINGS: Image quality: Excellent. Bones: There is normal bony alignment. No acute vertebral body compression fractures. No suspicious lytic or blastic bony lesions. No pars defects. L3 Schmorl's node. Multilevel DDD. Small vertebral body osteophytes. Broad-based disc bulge most pronounced at L4-L5. Mild central canal narrowing. Soft tissues: No retroperitoneal masses or hematomas. Visualized aorta is normal in caliber. Post cholecystectomy. Postoperative changes at the stomach. Small nonobstructing right kidney stone. Small low-density left adrenal nodule is unchanged. Likely a benign adenoma. IMPRESSION: No acute osseous abnormality. Dictated by: Max Ruiz M.D. on 09/23/2024 at 14:40 Approved by: Max Ruiz M.D. on 09/23/2024 at 14:48 XR Left Knee: Radiologist's Impression: PROCEDURE: XR KNEE LT 3V INDICATIONS: fall backward w bent knee; lateral pain TECHNIQUE: 3 views of the knee were acquired. COMPARISON: None. FINDINGS: Bones: No fractures or dislocations. No suspicious bony lesions. Mild degenerative changes. Soft tissues: Trace joint effusion. No suspicious soft tissue calcifications. IMPRESSION: No fracture demonstrated. Dictated by: Max Ruiz M.D. on 09/23/2024 at 14:38 Approved by: Max Ruiz M.D. on 09/23/2024 at 14:40 MDM Narrative Medical decision making narrative: 78-year-old female with a past medical history of scoliosis, gastric bypass, lumbosacral spondylosis who presents to the emergency department for head/tailbone/back pain after a fall that occurred yesterday afternoon. Differential diagnosis includes but is not limited to lumbar fracture, sacral fracture, cervical strain, closed head injury, concussion, left knee sprain, strain, etc. On exam the patient is in no acute distress, nontoxic-appearing, all vital signs within normal limits. She is tenderness to palpation of the sacrum and low back region and subjective pain on the bilateral sides of the neck with no midline cervical tenderness. She is also having lateral knee pain. She has not on blood thinners. We will obtain CT imaging of head neck and lumbosacral region. We will also x-ray left knee. We will treat pain with Tylenol and Lidoderm at t his time as patient needs to drive herself home. Left knee x-ray reveals no fracture, there is trace joint effusion, Talha wrap placed by myself, discussed rice therapy. CT head and neck reveal no acute traumatic abnormality. Lumbosacral CT reveals no acute osseous abnormality, there is multiple chronic changes which I discussed with the patient. All results were printed and provided to patient. Recommended supportive care, rice therapy for knee, Tylenol and Lidoderm patches for back and neck pain, patient is unable to take NSAIDs so I also did prescribe short course of Rudyard for severe breakthrough pain. Discussed risks of narcotics. Advised follow up with PCP. Discussed strict return precautions. Patient verbalized understanding of all information agreeable with the plan. She is ambulatory and stable for discharge home, all VS WNL. Discharge Plan Departure Patient Disposition: Home Clinical Impression: Acute coccygeal pain, Effusion of left knee Fall Qualifiers: Encounter type: initial encounter Qualified Code(s): W19.XXXA - Unspecified fall, initial encounter Cervical muscle strain Qualifiers: Encounter type: initial encounter Qualified Code(s): S16.1XXA - Strain of muscle, fascia and tendon at neck level, initial encounter Instructions: DI for Low Back Pain Activity Restrictions/Additional Instructions: Dear Ms. Desai, Thank you for coming to the emergency department. Today you were evaluated for injury sustained after a fall. The CT scan of your head, neck, low back revealed no broken bones or brain bleed. Your left knee x-ray did show a small effusion which is likely because of a knee sprain. Please continue wearing the Talha wrap to help support your knee. Please take Tylenol for pain in addition to the prescribed hydrocodone-acetaminophen for severe breakthrough pain. Please be aware that Rudyard contains 325 mg of Tylenol so you should only take 1-2 additional Tylenol with this medication. Please use RICE therapy for your knee pain in addition to acetaminophen. Rest the painful area. Ice the area of pain/swelling for at least 15 minutes, 4x a day. Compress the area of swelling using a brace, wrap, or splint if applied. Elevate the painful or swollen extremity by supporting it above the level of the heart with pillows when sitting or laying. You have been prescribed a short course of narcotic medications. These are potentially dangerous and addictive medications that should be used carefully. While on these medications you cannot drive or operate heavy machinery. Additionally, you cannot sign legal documents or perform any duties such as this. Many people get constipated on narcotic medications so it would be advisable to discuss stool softeners with the pharmacist when you clam picker your prescription. Please understand that we cannot provide further refills of narcotics or controlled substances through the ED and your pain management will need to be through your Primary Care Provider Please follow up with your primary care doctor within the next 2-3 days for ER follow-up. (If you do not have a PCP you can call [phone]. ?to schedule an appointment with an [facility] Primary Care Provider) IF YOU DEVELOP ANY NEW OR WORSENING SYMPTOMS, RETURN TO THE ER! Please read the attached instructions, they highlight more specific treatments and interventions for you at home. Thank you for letting me participate in your care, Rosalba Galdamez PA-C Prescriptions: New lidocaine [Lidoderm] 5 % adhesive patch,medicated 1 patch topical DAILY Qty: 30 0RF Rx Instructions: leave on most painful area for up to 12 hrs hydrocodone-acetaminophen 5-325 mg tablet 1 tab PO Q4-6H PRN (Reason: pain) Qty: 10 0RF No Action hydroxyzine pamoate [Vistaril] 25 mg capsule 25 mg PO BID PRN (Reason: pain (scale score 4-6)) Qty: 30 1RF ondansetron 4 mg tablet,disintegrating 4 mg PO Q8H PRN (Reason: nausea and vomiting) Qty: 10 0RF hydrocodone-acetaminophen 5-325 mg tablet 1 tab PO Q6-8H PRN (Reason: pain) Qty: 20 0RF rabeprazole 20 mg tablet,delayed release (DR/EC) 20 mg PO lorazepam [Lorazepam Intensol] 2 mg/mL concentrate 0.25 mg PO BID PRN hydrocodone-acetaminophen 5-300 mg tablet 1 tab PO BEDTIME PRN (Reason: pain) Qty: 14 0RF fluoxetine 10 mg capsule 10 mg PO DAILY diazepam [Valium] 10 mg tablet 10 mg PO .COMPLEX MDD 3 tabs PRN (Reason: 1-2 prior to MRI and for possible steroid flare) Qty: 10 0RF Rx Instructions: 10 mg PO PRN; acetaminophen-codeine 300-30 mg tablet 1 tab PO BID PRN (Reason: pain) Qty: 60 1RF Referrals: Hussain Narayanan DO [Primary Care Provider, Family Practice] Stand Alone Forms: Patient Portal/API
--- NOTE | 2024-09-23 14:24 | DI.CT.S_ITS ---
PROCEDURE: CT CERVICAL SPINE WO CON INDICATIONS: fall backward hit head no thinners TECHNIQUE: Noncontrast 3 mm thick sections acquired from the skull base to the T4 level. Sagittal and coronal reformats were then constructed. For radiation dose reduction, the following was used: automated exposure control, adjustment of mA and/or kV according to patient size. COMPARISON: None. FINDINGS: Image quality: Excellent. Bones: No fractures or dislocations. Visualized superior ribs are intact. Soft tissues: Prevertebral soft tissues are normal in thickness. No paravertebral hematomas. No apical pneumothoraces. IMPRESSION: No displaced fracture or traumatic subluxation. Dictated by: Max Ruiz M.D. on 09/23/2024 at 14:34 Approved by: Max Ruiz M.D. on 09/23/2024 at 14:38
--- NOTE | 2024-09-23 14:24 | DI.RAD.S_ITS ---
PROCEDURE: XR KNEE LT 3V INDICATIONS: fall backward w bent knee; lateral pain TECHNIQUE: 3 views of the knee were acquired. COMPARISON: None. FINDINGS: Bones: No fractures or dislocations. No suspicious bony lesions. Mild degenerative changes. Soft tissues: Trace joint effusion. No suspicious soft tissue calcifications. IMPRESSION: No fracture demonstrated. Dictated by: Max Ruiz M.D. on 09/23/2024 at 14:38 Approved by: Max Ruiz M.D. on 09/23/2024 at 14:40
--- NOTE | 2024-09-23 14:24 | DI.CT.S_ITS ---
PROCEDURE: CT LUMBAR SPINE WO CON INDICATIONS: fall backward low back and tailbone pain TECHNIQUE: Noncontrast 3 mm thick sections acquired from the T12 level to the sacrum. Sagittal and coronal reformats were constructed. For radiation dose reduction, the following was used: automated exposure control. COMPARISON: , CT, CT ABDOMEN PELVIS WITH CONTRAST, 04/16/2024, 13:47. FINDINGS: Image quality: Excellent. Bones: There is normal bony alignment. No acute vertebral body compression fractures. No suspicious lytic or blastic bony lesions. No pars defects. L3 Schmorl's node. Multilevel DDD. Small vertebral body osteophytes. Broad-based disc bulge most pronounced at L4-L5. Mild central canal narrowing. Soft tissues: No retroperitoneal masses or hematomas. Visualized aorta is normal in caliber. Post cholecystectomy. Postoperative changes at the stomach. Small nonobstructing right kidney stone. Small low-density left adrenal nodule is unchanged. Likely a benign adenoma. IMPRESSION: No acute osseous abnormality. Dictated by: Max Ruiz M.D. on 09/23/2024 at 14:40 Approved by: Max Ruiz M.D. on 09/23/2024 at 14:48
--- NOTE | 2024-09-23 14:24 | DI.CT.S_ITS ---
PROCEDURE: CT HEAD/BRAIN WO CON INDICATIONS: fall backward hit head no thinners TECHNIQUE: Noncontrast 4.5 mm thick angled axial sections acquired from the foramen magnum to the vertex, with coronal and sagittal reformats. For radiation dose reduction, the following was used: automated exposure control, adjustment of mA and/or kV according to patient size. COMPARISON: [facility], MR, MR BRAIN WITHOUT CONTRAST, 05/30/2024, 12:22. FINDINGS: Image quality: Diagnostic. CSF spaces: Basal cisterns are patent. No extra-axial fluid collections. Ventricles are normal in size and shape. Brain: No midline shift. No intracranial mass effect or hemorrhage. No area of hypodensity in a large vascular distribution to suggest acute infarction. Periventricular hypodensity consistent with chronic microvascular ischemic change. Age-related parenchymal loss. Skull and face: Calvarium and visualized facial bones are intact, without suspicious lesions. Sinuses: Visualized sinuses and mastoids are clear. IMPRESSION: No acute intracranial hemorrhage. Dictated by: Max Ruiz M.D. on 09/23/2024 at 14:31 Approved by: Max Ruiz M.D. on 09/23/2024 at 14:34
[2024-09-23] MEDS: ACETAMINOPHEN 325 MG TABLET 650 MG PO (14:57)
[2024-09-23] MEDS: LIDOCAINE 5% PATCH 1 EACH TOP (14:58)
[2024-09-23 16:33] VITALS: BP 126/79; PULSE 60; RESP 16; O2SAT 96
== END 2024-09-23 16:35 | disposition home or self-care (01) ==
PROVIDERS: Emergency Provider Physician Assistant; PCP Family Medicine
DX: S16.1XXA Strain of muscle, fascia and tendon at neck level, initial encounter (principal); M53.3 Sacrococcygeal disorders, not elsewhere classified; M25.462 Effusion, left knee; R51.9 Headache, unspecified; M54.50 Low back pain, unspecified; W01.0XXA Fall on same level from slipping, tripping and stumbling without subsequent striking against object, initial encounter
CPT/HCPCS: 70450; 72125; 72131; 73562; 99283; 99284

== ENCOUNTER 2025-02-05 20:55 | Emergency (ER) | payer MEDICARE, OTHER, SELFPAY ==
[2025-02-05 20:59] VITALS: BP 114/75; PULSE 90; RESP 18; TEMP 37.1; O2SAT 95; BMI 22.1
--- NOTE | 2025-02-05 21:10 | DI.RAD.S_ITS ---
PROCEDURE: XR CHEST 1V INDICATIONS: chest pain TECHNIQUE: One view of the chest was acquired. COMPARISON: [facility], CR, XR CHEST 1V, 06/29/2023, 13:16. FINDINGS: Surgical changes and devices: Cholecystectomy clips. Lungs and pleura: Lungs are clear. No pleural effusions or pneumothorax. Mediastinum: Mediastinal contours appear normal. Heart size is enlarged. Bones and chest wall: No suspicious bony lesions. Overlying soft tissues appear unremarkable. IMPRESSION: Normal chest. Dictated by: Aurelia Polo M.D. on 02/05/2025 at 21:32 Approved by: Aurelia Polo M.D. on 02/05/2025 at 21:32
[2025-02-05 22:41] LABS: Appearance Urine UA SL CLOUDY; Bilirubin Urine UA NEGATIVE (NEGATIVE); Color Urine UA YELLOW; Glucose Urine UA NEGATIVE (Negative); Ketones Urine UA NEGATIVE (NEGATIVE); Leukocyte Esterase Urine UA 1+ (NEGATIVE); Nitrite Urine UA POSITIVE (Negative); Occult Blood Urine UA 3+ (Negative); Protein Urine UA TRACE (Negative); Specific Gravity Urine UA >=1.030 (1.000-1.035); Urobilinogen Urine UA 0.2 E.U./dL (0.2)
[2025-02-05 22:42] LABS: pH Urine UA 5.5 (4.5-8.0)
[2025-02-05 22:46] LABS: Culture Indicated Urine Specimen Cultured
--- NOTE | 2025-02-05 23:13 | DI.CT.S_ITS ---
PROCEDURE: CT ABDOMEN PELVIS WO CON INDICATIONS: back pain, UTI, eval for stone TECHNIQUE: Axial sections were acquired from the lung bases to the pubic symphysis. Coronal and sagittal reformats were performed. For radiation dose reduction, the following was used: automated exposure control, adjustment of mA and/or kV according to patient size. COMPARISON: [facility], CT, CT KUB, 11/06/2024, 13:32. FINDINGS: Image quality: Diagnostic. Lower Chest: No significant findings. URINARY: Right Kidney: Unchanged inferior 8 mm calcification, Hounsfield units 925. Unchanged punctate inferior pole calcification. No obstruction. Right Ureter: No hydroureter. Left Kidney: Unchanged punctate nonobstructing calcification versus vascular calcification. Left Ureter: No hydroureter. Bladder: Normal wall thickness. No stones. ABDOMEN: Liver: No contour-deforming solid mass. Liver measures 17.7 cm. Gallbladder: Removed. Biliary ducts: No biliary dilation. Pancreas: No ductal dilation. Spleen: Size is within normal limits. Adrenal Glands: No adrenal nodules. Stomach and Bowel: Normal colonic caliber, without significant wall thickening. Prominent colonic stool without obstruction. Diverticula without inflammatory change. Peritoneum: No abnormal intraperitoneal fluid. No free air. Ventral Wall: No hernia. Abdominal Nodes: No enlarged retroperitoneal or mesenteric lymph nodes. Vessels: Aorta and inferior vena cava are normal in size. PELVIS: Pelvic Organs: Unremarkable. Pelvic Nodes: Unremarkable. Miscellaneous: No inguinal hernias are seen. Bones: Unremarkable. IMPRESSION: No obstructing stones or hydronephrosis. Unchanged right renal calcification. Prominent colonic stool. Dictated by: Aurelia Polo M.D. on 02/06/2025 at 0:18 Approved by: Aurelia Polo M.D. on 02/06/2025 at 0:22
--- NOTE | 2025-02-05 23:16 | ED.BACK ---
HPI - Back Pain/Injury General Chief Complaint: Back Pain/Injury Stated Complaint: Lt side/back pain Time Seen by Provider: 02/05/25 21:10 Source: patient History of Present Illness HPI Narrative: 79-year-old female was front-seat passenger reaching toward her right yesterday, complains of right lateral/flank area discomfort, worse with movements. She felt a pop sensation in her right lower rib area. No fall or blunt trauma injury. No painful or frequent urination. No current antibiotics. No fevers or chills. Related Data Home Medications ?Medication ?Instructions ?Recorded ?Confirmed rabeprazole 20 mg tablet,delayed 20 mg PO 10/04/22 10/16/24 release lorazepam 2 mg/mL oral concentrate 0.25 mg PO BID PRN 01/12/23 10/16/24 (Lorazepam Intensol) fluoxetine 10 mg capsule 10 mg PO DAILY 07/20/23 10/16/24 Previous Rx's ?Medication ?Instructions ?Recorded hydrocodone 5 mg-acetaminophen 300 1 tab PO BEDTIME PRN pain #14 tabs 01/12/23 mg tablet acetaminophen 300 mg-codeine 30 mg 1 tab PO BID PRN pain #60 tabs 04/11/23 tablet hydroxyzine pamoate 25 mg capsule 25 mg PO BID PRN pain (scale score 05/16/23 (Vistaril) 4-6) #30 caps ondansetron 4 mg disintegrating 4 mg PO Q8H PRN nausea and 06/29/23 tablet vomiting #10 tabs diazepam 10 mg tablet (Valium) 10 mg PO .COMPLEX PRN 1-2 prior to 07/20/23 MRI and for possible steroid flare #10 tabs hydrocodone 5 mg-acetaminophen 325 1 tab PO Q6-8H PRN pain #20 tabs 01/18/24 mg tablet hydrocodone 5 mg-acetaminophen 325 1 tab PO Q4-6H PRN pain #10 tabs 09/23/24 mg tablet lidocaine 5 % topical patch 1 patch topical DAILY #30 ea 09/23/24 (Lidoderm) mupirocin 2 % topical ointment 1 applic topical TID #15 grams 10/16/24 cefdinir 300 mg capsule 300 mg PO BID 10 days #20 caps 02/05/25 Allergies Allergy/AdvReac Type Severity Reaction Status Date / Time tramadol AdvReac Severe itching Verified 10/16/24 13:15 milk AdvReac Intermediate stomach Verified 10/16/24 13:15 cramps Patient History Medical History Scoliosis Panic attacks Spondylosis, lumbosacral Facet arthropathy, lumbar History of hiatal hernia Surgical History History of gastric bypass H/O gastric bypass H/O wrist surgery Family History Father Lung disease Mother A-fib Heart disease Brother Kidney stone Grandmother Stomach cancer Grandfather Heart disease Social History Smoking Status: Never smoker Smoking Status: Never smoker Exam Narrative Exam Narrative: GENERAL: Well-developed patient, in mild distress. HEAD: Atraumatic. Normocephalic. EYES: Pupils equal round and reactive. Extraocular motions intact. No scleral icterus. No injection or drainage. ENT: Nose without bleeding, purulent drainage. Throat without erythema, tonsillar hypertrophy or exudate. Airway patent. NECK: Trachea midline. Non tender CARDIOVASCULAR: Regular rate and rhythm without murmurs, gallops, or rubs. RESPIRATORY: Clear to auscultation. Breath sounds equal bilaterally. No wheezes, rales, or rhonchi. GASTROINTESTINAL: Abdomen soft, non-tender, nondistended. EXTREMITIES: No edema or joint tenderness. BACK: Nontender without deformity or crepitance. No flank tenderness. NEURO: AOx3. Motor functions grossly nonfocal. SKIN: No rash or erythema of visible areas Initial Vital Signs Initial Vital Signs: Vital Signs Temperature 98.7 F 02/05/25 20:59 Pulse Rate 90 02/05/25 20:59 Respiratory Rate 18 02/05/25 20:59 Blood Pressure 114/75 02/05/25 20:59 Pulse Oximetry 95 02/05/25 20:59 Oxygen Delivery Method Room Air 02/05/25 20:59 Course Orders Ordered: ED Orders 02/05/25 21:10 Chest [XR chest 1V] Stat 02/05/25 21:55 UA dip [Urinalysis Screen (Dip Only)] Stat Urine Culture Stat Urine Microscopic Stat 02/05/25 23:13 CT abdomen pelvis wo con Stat 02/05/25 23:32 CBC Auto Diff [Complete Blood Count AUTO DIFF] Stat CMP [Comprehensive Metabolic Panel] Stat Lipase Stat Discontinued Medications Hydrocodone Bitart/Acetaminophen (Hydrocodone/Acet 5/325 Tablet) 1 tab PO NOW ONE Stop: 02/05/25 23:32 Last Admin: 02/05/25 23:45 Dose: 1 tab Documented By: CAROL Hydrocodone Bitart/Acetaminophen (Hydrocodone/Acet 5/325 Prepack) 1 bottle MISC DIRECTED ONE Stop: 02/05/25 23:42 Last Admin: 02/05/25 23:44 Dose: 1 bottle Documented By: CAROL Ceftriaxone Sodium (Ceftriaxone 2,000 Mg Vial) 1,000 mg IM NOW ONE Stop: 02/05/25 23:14 Last Admin: 02/05/25 23:49 Dose: Not Given Documented By: LAUREN Ceftriaxone Sodium 1,000 mg/ (Sodium Chloride) 100 mls @ 200 mls/hr IV NOW ONE Stop: 02/05/25 23:39 Last Infusion: 02/06/25 00:38 Dose: Infused Documented By: Admin: 02/05/25 23:44 Dose: 200 mls/hr Documented By: CAROL Vital Signs Vital signs: Vital Signs - 8 hr 02/06/25 01:27 Temperature 98.1 F Pulse Rate 79 Respiratory Rate 16 Blood Pressure 97/65 Pulse Oximetry 97 Oxygen Delivery Method Room Air MDM - Back Pain/Injury Lab Data Attestation: I reviewed the patient's lab results. Lab results narrative: White blood cell count 5900, hemoglobin normal, platelets adequate. Glucose 111. Renal function, serum CO2, electrolytes normal. Liver functions and lipase normal. Urinalysis shows many bacteria, does not appear to be a contaminated specimen, nitrite positive, urine culture pending. 02/05/25 23:32 02/05/25 23:32 Labs: Lab Results 02/05/25 02/05/25 Range/Units 21:55 23:32 WBC 5.9 (4.5-11.0) X10^3/uL RBC 4.12 (4.0-5.2) X10^6/uL Hgb 12.2 (12.0-16.0) g/dL Hct 36.7 (36-46) % MCV 89.3 (80-100) fL MCH 29.6 (26-34) PG MCHC 33.1 (30-36) % RDW 15.0 H (11.6-14.8) % Plt Count 260 (150-400) X10^3/uL Neut % (Auto) 53.1 (50-75) % Lymph % (Auto) 31.4 (25-40) % [place] % (Auto) 12.5 (3-14) % Eos % (Auto) 2.4 (2-4) % Baso % (Auto) 0.6 (0-2) % Neut # (Auto) 3100 (4208-9648) /uL Lymph # (Auto) 1900 (1113-9252) /uL [place] # (Auto) 700 (0-900) /uL Eos # (Auto) 100 (0-450) /uL Baso # (Auto) 0 (0-100) /uL Sodium 138 (137-145) mmol/L Potassium 4.1 (3.4-5.1) mmol/L Chloride 107 (98-107) mmol/L Carbon Dioxide 25 (22-32) mmol/L BUN 22 H (7-17) mg/dL Creatinine 0.81 (0.52-1.04) mg/dL Estimated GFR > 60 (>60) mL/min BUN/Creatinine Ratio 27.2 H (6-22) Glucose 111 H (70-99) mg/dL Calcium 9.4 (8.4-10.2) mg/dL Total Bilirubin 0.2 (0.2-1.3) mg/dL AST 22 (14-36) IU/L ALT 11 (<35) IU/L Alkaline Phosphatase 83 (38-126) U/L Total Protein 7.1 (6.3-8.2) g/dL Albumin 4.0 (3.5-5.0) g/dL Globulin 3.1 (1.7-4.1) g/dL Albumin/Globulin Ratio 1.3 (1.0-2.8) Lipase 61 (23-300) U/L Urine Color Yellow Urine Appearance Sl cloudy Urine pH 5.5 (4.5-8.0) Ur Specific [place] >=1.030 H (1.000-1.035) Urine Protein Trace H (Negative) Urine Glucose (UA) Negative (Negative) g/dL Urine Ketones Negative (NEGATIVE) Urine Occult Blood 3+ H (Negative) Urine Nitrate Positive H (Negative) Urine Bilirubin Negative (NEGATIVE) Urine Urobilinogen 0.2 (0.2) E.U./dL Ur Leukocyte Esterase 1+ H (NEGATIVE) Urine RBC 10-30/hpf H (0-5/HPF) Urine WBC 30-100/hpf H (0-5/HPF) Ur Squamous Epith Cells 0-1 /hpf (0-5/HPF) Urine Bacteria Many (>30) H (None) Ur Culture Indicated? Specimen cultured Vol Urine Centrifuged 10ml (spun) Imaging Data Chest x-ray: Radiologist's Impression: [address] [address] XRay Report Signed Patient: Tess Desai MR#: [id number] : 1945 Acct:[id number] Age/Sex: 79 / F Date of Service: 02/05/25 Loc: ED Accession Number: [id number] Procedure: XR chest 1V Ordering Provider: Mp Ascencio MD PROCEDURE: XR CHEST 1V INDICATIONS: chest pain TECHNIQUE: One view of the chest was acquired. COMPARISON: [facility], , XR CHEST 1V, 06/29/2023, 13:16. FINDINGS: Surgical changes and devices: Cholecystectomy clips. Lungs and pleura: Lungs are clear. No pleural effusions or pneumothorax. Mediastinum: Mediastinal contours appear normal. Heart size is enlarged. Bones and chest wall: No suspicious bony lesions. Overlying soft tissues appear unremarkable. IMPRESSION: Normal chest. Dictated by: Aurelia Polo M.D. on 02/05/2025 at 21:32 Approved by: Aurelia Polo M.D. on 02/05/2025 at 21:32 CT scan - abdomen/pelvis: Radiologist's Impression: [address] [address] [address] Scan Report Signed Patient: Tess Desai MR#: [id number] : 1945 Acct:[id number] Age/Sex: 79 / F Date of Service: 02/05/25 Loc: ED Accession Number: [id number] Procedure: CT abdomen pelvis wo con Ordering Provider: Vito Roe MD PROCEDURE: CT ABDOMEN PELVIS WO CON INDICATIONS: back pain, UTI, eval for stone TECHNIQUE: Axial sections were acquired from the lung bases to the pubic symphysis. Coronal and sagittal reformats were performed. For radiation dose reduction, the following was used: automated exposure control, adjustment of mA and/or kV according to patient size. COMPARISON: [facility], CT, CT KUB, 11/06/2024, 13:32. FINDINGS: Image quality: Diagnostic. Lower Chest: No significant findings. URINARY: Right Kidney: Unchanged inferior 8 mm calcification, Hounsfield units 925. Unchanged punctate inferior pole calcification. No obstruction. Right Ureter: No hydroureter. Left Kidney: Unchanged punctate nonobstructing calcification versus vascular calcification. Left Ureter: No hydroureter. Bladder: Normal wall thickness. No stones. ABDOMEN: Liver: No contour-deforming solid mass. Liver measures 17.7 cm. Gallbladder: Removed. Biliary ducts: No biliary dilation. Pancreas: No ductal dilation. Spleen: Size is within normal limits. Adrenal Glands: No adrenal nodules. Stomach and Bowel: Normal colonic caliber, without significant wall thickening. Prominent colonic stool without obstruction. Diverticula without inflammatory change. Peritoneum: No abnormal intraperitoneal fluid. No free air. Ventral Wall: No hernia. Abdominal Nodes: No enlarged retroperitoneal or mesenteric lymph nodes. Vessels: Aorta and inferior vena cava are normal in size. PELVIS: Pelvic Organs: Unremarkable. Pelvic Nodes: Unremarkable. Miscellaneous: No inguinal hernias are seen. Bones: Unremarkable. IMPRESSION: No obstructing stones or hydronephrosis. Unchanged right renal calcification. Prominent colonic stool. Dictated by: Aurelia Polo M.D. on 02/06/2025 at 0:18 Approved by: Aurelia Polo M.D. on 02/06/2025 at 0:22 [facility] Narrative Medical decision making narrative: 79-year-old female with right lower rib area popping sensation after reaching to the right said in passenger car yesterday, some tenderness on examination, no dyspnea. Normal room air sat. Afebrile, sirs screen negative. Any chest x-ray negative. Urinalysis also obtained, suspicious for infection. Labs sent, CT abdomen and pelvis to evaluate for any complicated urinary tract infection. IM ceftriaxone, may give IV if IV placed for lab draw. Lab data: Urinalysis suspicious for infection, urine culture per protocol. Chest x-ray, no acute changes. See radiology report. CT abdomen and pelvis. No acute changes, incidental fecal stool burden noted without obstructive patterns. See radiology report. Patient has history of tramadol allergy, has taken hydrocodone in the past, she would like pain medication. Oral hydrocodone dose. Home pack hydrocodone for discharge. IV ceftriaxone given for suspected urinary tract infection, CT shows no obstructive uropathy changes or complicated pyelonephritis/UTI. Trial of outpatient further antibiotics, prescription for cefdinir sent to her pharmacy for 10 day course. Recheck advised to reassess symptoms next 2 days with the regular provider. Discharge Plan Departure Patient Disposition: Home Clinical Impression: Urinary tract infection, Right-sided chest wall pain Instructions: DI for Urinary Tract Infection (UTI), DI for Muscle Strain Activity Restrictions/Additional Instructions: 79-year-old female was reaching to the right yesterday, discomfort right lateral chest pain after popping kind of sound. Mild tenderness to palpation without visible lesions. Chest x-ray negative. Urinalysis obtained, suspicious for infection. CT abdomen and pelvis was done to make shows no complicated infection such as an obstructing kidney stone in the ureter. CT scan no acute changes noted. It is possible that you might have lower tract infection bladder infection/cystitis with chest wall injury only. No fever noted on triage. We will treat with broad-spectrum antibiotics in case of kidney infection cause of upper right lateral truncal discomfort. IV ceftriaxone antibiotic given. We will send prescription to your requested pharmacy for further antibiotics of cefdinir. Take antibiotics as directed. Drink plenty of fluids. Take pain medications as needed. You have history of allergies to tramadol, but have had hydrocodone in the past. Oral dose of hydrocodone/acetaminophen given, with home pack to use if needed. Recheck advised in the next couple of days with the regular doctor. Return to this/nearest emergency department for any change worsening symptoms or any concerns prior. Prescriptions: New cefdinir 300 mg capsule 300 mg PO BID 10 Days Qty: 20 0RF No Action mupirocin 2 % ointment 1 applic topical TID Qty: 15 0RF hydroxyzine pamoate [Vistaril] 25 mg capsule 25 mg PO BID PRN (Reason: pain (scale score 4-6)) Qty: 30 1RF ondansetron 4 mg tablet,disintegrating 4 mg PO Q8H PRN (Reason: nausea and vomiting) Qty: 10 0RF hydrocodone-acetaminophen 5-325 mg tablet 1 tab PO Q6-8H PRN (Reason: pain) Qty: 20 0RF lidocaine [Lidoderm] 5 % adhesive patch,medicated 1 patch topical DAILY Qty: 30 0RF Rx Instructions: leave on most painful area for up to 12 hrs hydrocodone-acetaminophen 5-325 mg tablet 1 tab PO Q4-6H PRN (Reason: pain) Qty: 10 0RF rabeprazole 20 mg tablet,delayed release (DR/EC) 20 mg PO lorazepam [Lorazepam Intensol] 2 mg/mL concentrate 0.25 mg PO BID PRN hydrocodone-acetaminophen 5-300 mg tablet 1 tab PO BEDTIME PRN (Reason: pain) Qty: 14 0RF fluoxetine 10 mg capsule 10 mg PO DAILY diazepam [Valium] 10 mg tablet 10 mg PO .COMPLEX MDD 3 tabs PRN (Reason: 1-2 prior to MRI and for possible steroid flare) Qty: 10 0RF Rx Instructions: 10 mg PO PRN; acetaminophen-codeine 300-30 mg tablet 1 tab PO BID PRN (Reason: pain) Qty: 60 1RF Referrals: Enrique Mcdaniel MD [Primary Care Provider, Family Practice] Stand Alone Forms: Patient Portal/API
[2025-02-05 23:41] LABS: Add Manual Diff / Slide Review NO; Hematocrit 36.7 % (36-46); Hemoglobin 12.2 g/dL (12.0-16.0); Lymphocytes Absolute Auto 1900 /uL (1100-4500); Mean Corpuscular HGB Conc 33.1 % (30-36); Mean Corpuscular Hemoglobin 29.6 PG (26-34); Mean Corpuscular Volume 89.3 fL (80-100); Platelet Count 260 X10^3/uL (150-400)
[2025-02-05 23:52] LABS: Alanine Aminotransferase 11 IU/L (<35); Albumin 4.0 g/dL (3.5-5.0); Albumin Globulin Ratio 1.3 (1.0-2.8); Alkaline Phosphatase 83 U/L (38-126); Blood Urea Nitrogen 22 mg/dL (7-17); Calcium 9.4 mg/dL (8.4-10.2); Carbon Dioxide 25 mmol/L (22-32); Chloride 107 mmol/L (98-107); Estimated Glomerular Filt Rate > 60 mL/min (>60); Globulin 3.1 g/dL (1.7-4.1); Glucose 111 mg/dL (70-99); HEMOLYSIS < 15 (0-50); Lipase 61 U/L (23-300); Potassium 4.1 mmol/L (3.4-5.1); Sodium 138 mmol/L (137-145); Total Protein 7.1 g/dL (6.3-8.2)
[2025-02-06 01:27] VITALS: BP 97/65; PULSE 79; RESP 16; TEMP 36.7; O2SAT 97
== END 2025-02-06 01:32 | disposition home or self-care (01) ==
PROVIDERS: Emergency Medicine; Emergency Provider Emergency Medicine
DX: N39.0 Urinary tract infection, site not specified (principal); R07.89 Other chest pain
CPT/HCPCS: 36415; 71045; 74176; 80053; 81003; 81015; 83690; 85025; 87077; 87086; 87186; 96365; 99284; J0696; J7050